=== PATIENT | male | born 2000 | race Caucasian/White ===

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

== ENCOUNTER 2021-02-20 13:31 | Emergency (ER) | payer SELFPAY ==
[2021-02-20 14:12] VITALS: BP 145/80; PULSE 107; RESP 18; TEMP 36.7; O2SAT 96; BMI 37.7
--- NOTE | 2021-02-20 14:52 | ED_ITS ---
HPI - Extremity Problem General: Chief complaint: Extremity Injury, Lower Stated complaint: R FOOT DICOLORATION AND SPASMS Time Seen by Provider: 02/20/21 14:46 History of Present Illness: HPI Narrative: Patient here because his right foot hurts bad patient was seen last night at clinic and had some debridement done on a puncture wound where he stepped on a nail yesterday was placed on antibiotics but patient is not taking antibiotics as of right now. And patient will take pain medication because his dad was an addict. Denies any other problems. MD Complaint: extremity pain Onset (ago): hour(s) Pain Consistency: constant Location: right and lower extremity Quality: aching Radiation: none Exacerbating factors: weight bearing Associated symptoms: Deny chest pain, fever(s) or rash Review of Systems Const: Denies: fever(s), chills or body aches Eyes: Denies: change in vision or blurry vision ENMT: Denies: throat pain or nasal congestion Card: Denies: chest pain or dyspnea on exertion Resp: Denies: dyspnea, productive cough or non-productive cough GI: Denies: abdominal pain, nausea or vomiting : Denies: difficulty urinating Musc: Reports: extremity pain (Sole right foot hurts where he stepped on a nail.) Skin/Breast: Denies: rash Neuro: Denies: headache(s) Psych: Denies: anxiety or depression Yomi/Lymph: Denies: easy bruising [facility] ED PFSH: Medical History (Updated 02/20/21 @ 14:51 by JAYASHREE Borrero) Obesity (BMI 30-39.9) Puncture wound of foot excluding toes with infection Physical Exam Const: COMMON NORMALS: no acute distress, average body habitus and patient oriented x3 HENMT: COMMON NORMALS: normocephalic HEAD & SCALP: normal to inspection and normocephalic FACE & SINUS: normal facial exam Eye: COMMON NORMALS: conjunctivae normal GENERAL EYE: appearance normal, both eyes and all related structures CONJUNCTIVA: Yes conjunctivae normal Neck/C-Spine: COMMON NORMALS: no JVD Chest: COMMONS NORMALS: normal inspection of the chest Resp: COMMON NORMALS: normal respiratory effort Cardio: COMMON NORMALS: no JVD RATE: tachycardic GI: COMMON NORMALS: Normal to inspection, nondistended, normoactive bowel sounds present Extremity: COMMON NORMALS: full ROM RIGHT LOWER EXTREMITY: Yes foot & digits (Puncture wound present sole right foot no redness swelling foot is not disc) Neuro: COMMON NORMALS: patient oriented x3 Course Vital Signs: Vital signs: Vital Signs Temperature 98.0 F 02/20/21 14:12 Pulse Rate 107 H 02/20/21 14:12 Respiratory Rate 18 02/20/21 14:12 Blood Pressure 145/80 02/20/21 14:12 Pulse Oximetry 96 02/20/21 14:12 MDM - Extremity (Nontraumatic) MDM Narrative: Medical decision making narrative: Foot did not show any swelling was tender to touch no discoloration no spasms noted. Patient was encouraged to take medication as directed soak foot follow-up with family doctor. Discharge Plan Discharge Patient Disposition: Home Clinical Impression: Puncture wound of foot excluding toes with infection Qualifiers: Encounter type: subsequent encounter Laterality: right Qualified Code(s): S91.331D - Puncture wound without foreign body, right foot, subsequent encounter Condition: Stable Prescriptions: No Action cephalexin 750 mg capsule 750 mg PO BID Qty: 14 RF: 0 Discharge Orders: Discharge ED (Routine); Ordered 02/20/21 Ordered By: Art Mancilla Discharge Diet: Usual diet Discharge Activity: Increase activity as tolerated Patient Instructions: Puncture Wound (ED) Activity Restrictions/Additional Instructions: Follow-up with medical provider as directed. Take medications as prescribed. Return to the ER or your medical provider if condition worsens. Please read and understand discharge instructions. If any questions ask please. Soak foot in Epson salts 3 times a day follow back up your family doctor as necessary. Started on antibiotics. Coding Level of Care Code ED Press Operator Assistant for Marco Antonio Fwton Exam Comprehensive
[2021-02-20] MEDS: tetanus-dipt-pertussis 0.5 mL SDV IM (14:56)
== END 2021-02-20 15:01 | disposition home or self-care (01) ==
PROVIDERS: Emergency Provider Nurse Practitioner Family
DX: S91.331A Puncture wound without foreign body, right foot, initial encounter (principal); L08.9 Local infection of the skin and subcutaneous tissue, unspecified; W45.0XXA Nail entering through skin, initial encounter; Z23 Encounter for immunization
CPT/HCPCS: 90471; 90715; 99282

== ENCOUNTER 2023-02-09 14:23 | Emergency (ER) | payer SELFPAY ==
[2023-02-09 14:38] VITALS: BP 133/77; PULSE 100; RESP 19; TEMP 36.8; O2SAT 100; BMI 38.2
--- NOTE | 2023-02-09 14:42 | ECG_ITS ---
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 Measurements Intervals [place] Rate: 88 P: 136 SC: 130 QRS: 129 QRSD: 87 T: 30 QT: 323 QTc: 393 Interpretive Statements ECTOPIC ATRIAL RHYTHM LEFT POSTERIOR FASCICULAR BLOCK [QRS AXIS > 109, INFERIOR Q] Compared to ECG 07/08/2016 10:19:01 Ectopic atrial rhythm now present Left posterior fascicular block now present Sinus bradycardia no longer present Electronically Signed On 02-10-2023 21:08:12 CDT by Fátima Mendoza M.D. [id number]
--- NOTE | 2023-02-09 16:01 | W.ED.GENADLT ---
HPI - General Adult General: Chief complaint: Chest Pain Stated complaint: states high hr/Urgent care sent Time Seen by Provider: 02/09/23 15:43 Source: patient Mode of arrival: ambulatory Limitations: no limitations History of Present Illness: Patient is a 22-year-old male who presents to ED today for evaluation of what he believes are panic attacks. He states over the course of a month or so he has had 3 episodes where he has felt very anxious, nauseous, starts to develop chest pain, and feels like his heart is racing. He states episodes and timing began after starting a new job at [employer] and states he is under an immense amount of stress. In between episodes he feels completely asymptomatic. There is no exertional component to his symptoms. Patient otherwise is healthy. He has no primary care provider. Denies drug or alcohol use. Denies excessive caffeine use or energy drink use. He states he had an episode earlier today that scared him thus prompting his ED visit. Upon arrival to the ED and during my initial examination patient tells me symptoms have fully resolved and he is completely asymptomatic. Onset (ago): month(s) Severity: moderate Pain Consistency: intermittent Relieving factors: none Exacerbating factors: other (stress) Associated symptoms: Reports chest pain (during episode; none currently), dyspnea (during episode; none currently), nausea (none currently) and palpitations; Deny headache(s), malaise, rash, syncope or vomiting Treatments prior to arrival: none Review of Systems Const: Denies: fever(s), chills, body aches, fatigue or malaise Card: Reports: chest pain (during episode; none currently) and palpitations; Denies: irregular heart rhythm, edema, swelling of feet/ankles, lightheadedness, syncope, pre-syncope, dyspnea on exertion, orthopnea, leg pain with exertion or acrocyanosis Resp: Reports: dyspnea (during episode; none currently); Denies: productive cough, non-productive cough, wheezing, pain on inspiration, hemoptysis or chest congestion GI: Reports: nausea (none currently); Denies: abdominal pain, vomiting or diarrhea : Denies: flank pain, dysuria or hematuria Musc: Denies: neck pain, back pain, extremity pain or joint pain Skin/Breast: Denies: rash Neuro: Reports: dizziness (during episode; none currently); Denies: headache(s), numbness in extremities, weakness in extremities, sensory changes, lack of coordination or difficulty walking PFSH ED PFSH: Medical History Obesity (BMI 30-39.9) Psychiatric care Puncture wound of foot excluding toes with infection Social History Smoking and tobacco status: current every day smoker e-cigarettes E-Cigarette Details: vaporizer device and with nicotine E-cig/vape details: Refill/3 weeks. Quit status (tobacco): has quit using tobacco Year quit tobacco: 2021 Second hand smoke exposure: No Smoking risk assessment/counseling performed?: No Alcohol intake: current Alcohol intake frequency: holidays/special occasions only Alcohol type: wine Desire information about alcohol rehabilitation?: No Counseling given: No Substance/Drug Use: never Desire information about substance/drug rehabilitation?: No Counseling given: No Physical Exam Const: COMMON NORMALS: no acute distress, average body habitus, patient oriented x3, no limitations, healthy appearing, alert and well nourished GENERAL APPEARANCE: cooperative and anxious ORIENTATION/CONSCIOUSNESS: Yes awake, Yes oriented to person, Yes oriented to place and Yes oriented to time Eye: GENERAL EYE: appearance normal, both eyes and all related structures Neck/C-Spine: COMMON NORMALS: full ROM, no lymphadenopathy, supple and no meningeal signs Chest: COMMONS NORMALS: normal inspection of the chest and normal palpation of entire chest wall Resp: COMMON NORMALS: normal respiratory effort and clear to auscultation bilaterally AUSCULTATION: clear to auscultation bilaterally Cardio: COMMON NORMALS: regular rate and regular rhythm RATE: regular rate RHYTHM: regular rhythm Extremity: COMMON NORMALS: normal to inspection GENERAL: Yes normal exam except as noted Neuro: SAMMY COMA SCALE: document GCS findings Sammy coma scale eye opening: Spontaneous Sammy coma scale verbal response: Orientated [place] coma scale motor response: Obey commands Sammy coma scale total score: 15 COMMON NORMALS: patient oriented x3, moves all extremities, no focal motor deficits, no sensory deficits noted and gait normal SENSORIUM/ORIENTATION: Yes alert, Yes oriented to person, Yes oriented to place and Yes oriented to time MENINGEAL SIGNS: Yes no meningeal signs Skin: COMMON NORMALS: no rashes or lesions noted GENERAL SKIN EXAM: no rashes or lesions noted Course Vital Signs: Vital signs: Vital Signs Temperature 98.2 F 02/09/23 14:38 Pulse Rate 100 02/09/23 14:38 Respiratory Rate 19 H 02/09/23 14:38 Blood Pressure 133/77 02/09/23 14:38 Pulse Oximetry 100 02/09/23 14:38 Oxygen Delivery Me thod Room Air 02/09/23 14:38 MDM - General Adult Medical Decision Making Upon arrival to the ED patient is asymptomatic. Vital signs are stable. He had EKG performed in triage. Additional work-up including CXR/imaging and blood work was offered and recommended the patient however he declined stating he is self-pay and worries about the cost of this visit. He feels his symptoms are related to anxiety and is kindly requesting we try some type of medication for this. We will get patient set up with a primary care provider/he has already received financial investigator paperwork and states he will complete this. Strict return to ED precautions given. Discharge Plan Discharge Patient Disposition: Home Clinical Impression: Anxiety Condition: Stable Prescriptions: New lorazepam 0.5 mg tablet 0.5 mg PO ONCE PRN (Reason: anxiety) Qty: 10 0RF Rx Instructions: Do not exceed more than one tab every 4-6 hours. No Action sertraline [Zoloft] 50 mg tablet 50 mg PO DAILY Qty: 30 2RF amoxicillin 875 mg tablet 875 mg PO BID 7 Days Qty: 14 0RF Discharge Orders: Discharge ED (Routine); Ordered 02/09/23 Ordered By: Yadi Fontana Coding Level of Care Code ED Elevator Runner for Marco Antonio Mendiola
--- NOTE | 2023-02-11 15:12 | DCPLANNER ---
manager hotel called patient due to no primary care physician - no answer at this time
== END 2023-02-09 16:17 | disposition home or self-care (01) ==
PROVIDERS: Emergency Provider Physician Assistant
DX: F41.9 Anxiety disorder, unspecified (principal); F17.290 Nicotine dependence, other tobacco product, uncomplicated
CPT/HCPCS: 93005; 99283

== ENCOUNTER 2023-04-16 07:46 | Emergency (ER) | payer SELFPAY ==
[2023-04-16 08:08] VITALS: BP 140/82; PULSE 94; RESP 18; TEMP 36.9; O2SAT 97; BMI 38.7
--- NOTE | 2023-04-16 08:19 | CTR_ITS ---
PROCEDURE INFORMATION: Exam: CT Abdomen And Pelvis With Contrast Exam date and time: 04/16/2023 9:11 AM Age: 23 years old Clinical indication: Abdominal pain; Generalized; Additional info: Right-sided abdominal pain, nausea/vomiting and diarrhea TECHNIQUE: Imaging protocol: Computed tomography of the abdomen and pelvis with contrast. Radiation optimization: All CT scans at this facility use at least one of these dose optimization techniques: automated exposure control; mA and/or kV adjustment per patient size (includes targeted exams where dose is matched to clinical indication); or iterative reconstruction. Contrast material: OMNI 350; Contrast volume: 100 ml; Contrast route: INTRAVENOUS (IV); REPORTING DATA: Count of CT and Cardiac NM exams in prior 12 months: This patient has received 0 known CTs and 0 known cardiac nuclear medicine studies in the 12 months prior to the current study. COMPARISON: CR XR sacrum coccyx min 2V [id number] 10/25/2017 12:40 PM RADIATION DOSE METRICS: Total DLP (mGy-cm): 1251.83 FINDINGS: Liver: Normal. No mass. Gallbladder and bile ducts: Normal. No calcified stones. No ductal dilation. Pancreas: Normal. No ductal dilation. Spleen: Normal. No splenomegaly. Adrenal glands: Normal. No mass. Kidneys and ureters: Normal. No hydronephrosis. Stomach and bowel: Unremarkable. No obstruction. No mucosal thickening. Appendix: No evidence of appendicitis. Intraperitoneal space: Unremarkable. No free air. No significant fluid collection. Vasculature: Unremarkable. No abdominal aortic aneurysm. Lymph nodes: Unremarkable. No enlarged lymph nodes. Urinary bladder: Unremarkable as visualized. Reproductive: Unremarkable as visualized. Bones/joints: Unremarkable. No acute fracture. Soft tissues: Unremarkable. CT/CT abdomen pelvis w con* [id number] IMPRESSION: No acute findings.
--- NOTE | 2023-04-16 08:20 | ED_ITS ---
HPI - Abdominal Pain General: Chief Complaint: Abdominal Pain Stated Complaint: stomach pain/small amount blood in stool Time Seen by Provider: 04/16/23 07:57 History of Present Illness: Patient is a 23-year-old male comes to the ED with abdominal pain. Symptoms started approximately 2 to 3 days ago. The abdominal pain is in the right side of his abdomen, but most of pain is in the right upper quadrant of the abdomen. Pain worsens a little after he eats. He describes it as a constant aching type pain with episodes of a sharp stabbing pain. He rates the pain currently a 7 o ut of 10. He endorses having nausea and had multiple episodes of emesis within the past couple days. He has had 2 episodes of diarrhea, one this morning and one yesterday. The episode of diarrhea today had a little bit of red blood in it. Patient states he never had abdominal pain in this part of his abdomen before. Denies any past abdominal surgeries. Endorses dysuria. Denies any, chills, hematuria. Associated Symptoms: Reports diarrhea, dysuria, hematochezia, nausea and vomiting; Denies chills, constipation, fever(s) and hematuria Review of Systems Const: Denies: fever(s), chills or fatigue Eyes: Denies: change in vision or eye discomfort ENMT: Denies: throat pain, odynophagia, nasal discharge or nasal congestion Card: Denies: chest pain, palpitations, edema, swelling of feet/ankles, dyspnea on exertion or orthopnea Resp: Denies: dyspnea, productive cough or non-productive cough GI: Reports: abdominal pain, nausea, vomiting, diarrhea and hematochezia; Denies: constipation : Reports: dysuria; Denies: flank pain, difficulty urinating or hematuria Musc: Denies: neck pain, back pain or extremity swelling Skin/Breast: Denies: rash or new lesions Neuro: Denies: headache(s), numbness in extremities or weakness in extremities PFSH ED PFSH: Medical History Obesity (BMI 30-39.9) Psychiatric care Puncture wound of foot excluding toes with infection Social History Smoking and tobacco status: current every day smoker e-cigarettes E-Cigarette Details: vaporizer device and with nicotine E-cig/vape details: Refill/3 weeks. Quit status (tobacco): has quit using tobacco Year quit tobacco: 2021 Second hand smoke exposure: No Smoking risk assessment/counseling performed?: No Alcohol intake: current Alcohol intake frequency: holidays/special occasions only Alcohol type: wine Desire information about alcohol rehabilitation?: No Counseling given: No Substance/Drug Use: never Desire information about substance/drug rehabilitation?: No Counseling given: No Physical Exam Const: COMMON NORMALS: patient oriented x3 and alert HENMT: COMMON NORMALS: normocephalic HEAD & SCALP: normocephalic MOUTH: Normal oral and palatal mucosa present THROAT: posterior oropharynx normal and uvula midline Neck/C-Spine: COMMON NORMALS: supple GENERAL: Yes normal visual inspection Resp: COMMON NORMALS: normal respiratory effort, No retractions, No use of accessory muscles and clear to auscultation bilaterally AUSCULTATION: clear to auscultation bilaterally Cardio: COMMON NORMALS: regular rate, regular rhythm, S1 normal heart sound present, S2 normal heart sound present, No gallops present (Cardio), No clicks present (Cardio), No murmurs present (Cardio) and Peripheral pulses 2+ throughout RATE: regular rate RHYTHM: regular rhythm HEART SOUNDS: S1 normal heart sound present and S2 normal heart sound present PERIPHERAL PULSES: Peripheral pulses 2+ throughout GI: COMMON NORMALS: Normal to inspection, nondistended, normoactive bowel sounds present, Soft to palpation and no masses PALPATION: Yes Soft to palpation and Yes Tenderness to palpation present (GI) (RUQ more tender then RLQ) Details: RLQ and RUQ : COMMON NORMALS: Yes no CVA tenderness BLADDER/KIDNEY EXAM: Yes no CVA tenderness Back/Pelvis: COMMON NORMALS: no CVA tenderness Extremity: COMMON NORMALS: normal to inspection Neuro: COMMON NORMALS: patient oriented x3 SENSORIUM/ORIENTATION: Yes alert GAIT: Yes Normal gait present Skin: GENERAL SKIN EXAM: dry skin Course Vital Signs: Vital signs: Vital Signs Temperature 98.4 F 04/16/23 08:08 Pulse Rate 63 04/16/23 12:05 Respiratory Rate 18 04/16/23 12:05 Blood Pressure 127/73 04/16/23 12:05 Pulse Oximetry 98 04/16/23 12:05 Oxygen Delivery Me thod Room Air 04/16/23 12:02 MDM - Abdominal Pain Medical Decision Making Patient is a 23-year-old male comes to the ED with abdominal pain. Symptoms started approximately 2 to 3 days ago. The abdominal pain is in the right side of his abdomen, but most of pain is in the right upper quadrant of the abdomen. Pain worsens a little after he eats. He describes it as a constant aching type pain with episodes of a sharp stabbing pain. He rates the pain currently a 7 out of 10. He endorses having nausea and had multiple episodes of emesis within the past couple days. He has had 2 episodes of diarrhea, one this morning and one yesterday. The episode of diarrhea today had a little bit of red blood in it. Patient states he never had abdominal pain in this part of his abdomen before. Denies any past abdominal surgeries. Endorses dysuria. Denies any, chills, hematuria. Vitals are stable. Patient appears nontoxic in no acute distress or pain. Exam of patient shows right upper quadrant right lower quadrant abdominal tenderness. Rest of exam is benign. CBC, CMP, lipase and UA are all unremarkable. CT of abdomen pelvis shows no acute findings and ultrasound of gallbladder shows no acute findings. Patient's symptoms were controlled with IV fluids and nausea meds. He was able to tolerate p.o. fluids here in the ED. Patient was diagnosed with biliary colic and was stable for discharge home. I offered a referral to patient for PCP and general surgeon and he did not want one at this time. I sent him home with a prescription for Zofran and told him to follow-up with a PCP within the next 10 days. Patient understood agree with plan. Lab Data I reviewed the patient's lab results. 04/16/23 08:45 04/16/23 08:45 Labs/Radiology: Radiology Impressions Abdomen/Pelvis CT 04/16/23 08:19 IMPRESSION: No acute findings. Gallbladder Ultrasound 04/16/23 09:52 IMPRESSION: Negative abdominal sonogram Laboratory Results WBC 4.8 10^3/uL (4.0-10.0) 04/16/23 08:45 RBC 5.75 10^6/uL (4.1-5.3) H 04/16/23 08:45 Hgb 15.3 g/dL (11.7-16.6) 04/16/23 08:45 Hct 47.9 % (42.0-52.0) 04/16/23 08:45 MCV 83.3 fl (80-94) 04/16/23 08:45 MCH 26.6 pg (28.0-34.0) L 04/16/23 08:45 MCHC 31.9 g/dL (30.0-36.0) 04/16/23 08:45 RDW 14.2 % (12.1-15.1) 04/16/23 08:45 Plt Count 200 10^3/cmm (130-400) 04/16/23 08:45 MPV 11.9 fL (7.4-10.4) H 04/16/23 08:45 Neut % (Auto) 47.7 % 04/16/23 08:45 Lymph % (Auto) 41.6 % 04/16/23 08:45 [place] % (Auto) 8.6 % 04/16/23 08:45 Eos % (Auto) 1.3 % 04/16/23 08:45 Baso % (Auto) 0.6 % 04/16/23 08:45 Neut # (Auto) 2.28 10^3/uL (1.8-7.7) 04/16/23 08:45 Lymph # (Auto) 2.0 10^3/uL (0.8-4.8) 04/16/23 08:45 [place] # (Auto) 0.4 10^3/uL (0.2-0.9) 04/16/23 08:45 Eos # (Auto) 0.1 10^3/uL (0.0-0.8) 04/16/23 08:45 Baso # (Auto) 0.0 10^3/uL (0.0-0.1) 04/16/23 08:45 Nucleated RBC % (auto) 0 % 04/16/23 08:45 Nucleated RBCs # 0.0 /100WBC 04/16/23 08:45 Sodium 139 mmol/L (136-145) 04/16/23 08:45 Potassium 4.3 mmol/L (3.5-5.1) 04/16/23 08:45 Chloride 103 mmol/L (98-107) 04/16/23 08:45 Carbon Dioxide 26 mmol/L (22-29) 04/16/23 08:45 Anion Gap 14.3 (5-19) 04/16/23 08:45 BUN 17 mg/dL (6-20) 04/16/23 08:45 Creatinine 0.8 mg/dL (0.7-1.2) 04/16/23 08:45 GFR Calculation 120.9 mL/min (90-130) 04/16/23 08:45 Glucose 98 mg/dL (65-115) 04/16/23 08:45 Calculated Osmolality 290 mOsm/kg (285-295) 04/16/23 08:45 Calcium 9.6 mg/dL (8.5-10.5) 04/16/23 08:45 Total Bilirubin 0.8 mg/dL (0.15-1.2) 04/16/23 08:45 AST 22 U/L (0-40) 04/16/23 08:45 ALT 43 U/L (0-41) H 04/16/23 08:45 Alkaline Phosphatase 124 U/L (40-130) 04/16/23 08:45 Total Protein 7.9 g/dL (6.6-8.7) 04/16/23 08:45 Albumin 4.7 g/dL (3.5-5.2) 04/16/23 08:45 Globulin 3.2 g/dL (1.3-4.6) 04/16/23 08:45 Lipase 12 U/L (13-60) L 04/16/23 08:45 Urine Color Straw (Yellow) 04/16/23 09:10 Urine Appearance Sl hazy (CLEAR) A 04/16/23 09:10 Urine pH 9 (5-7) H 04/16/23 09:10 Ur Specific [place] 1.015 (1.005-1.030) 04/16/23 09:10 Urine Protein Neg (Negative) 04/16/23 09:10 Urine Glucose (UA) Norm (Normal) 04/16/23 09:10 Urine Ketones Negative (Negative) 04/16/23 09:10 Urine Blood Neg (Negative) 04/16/23 09:10 Urine Nitrate Negative (Negative) 04/16/23 09:10 Urine Bilirubin Neg (Negative) 04/16/23 09:10 Prot Sulfosalicylic Acd Negative (Negative) 04/16/23 09:10 Urine Urobilinogen Norm mg/dL (Negative) 04/16/23 09:10 Ur Leukocyte Esterase Negative (Negative) 04/16/23 09:10 Urine RBC None /hpf (0-2) 04/16/23 09:10 Urine WBC Rare /hpf (0-5) 04/16/23 09:10 Ur Squamous Epith Cells None /hpf (0-5) 04/16/23 09:10 Amorphous Sediment 1+ /hpf 04/16/23 09:10 Urine Bacteria Trace /hpf (NONE) 04/16/23 09:10 Discharge Plan Discharge Patient Disposition: Home Clinical Impression: Biliary colic symptom Condition: Stable Prescriptions: New ondansetron 4 mg tablet,disintegrating 4 mg PO Q8H PRN (Reason: nausea and vomiting) Qty: 20 0RF Discharge Orders: Discharge ED (Routine); Ordered 04/16/23 Ordered By: Karlos Levine Discharge Diet: Advance as tolerated and Clear Liquid Discharge Activity: Increase activity as tolerated Patient Instructions: Biliary Colic (ED) Activity Restrictions/Additional Instructions: Follow-up with medical provider as directed in the next 7 to 10 days for reevaluation. Clear liquid diet for the next 24 hours and slowly advance diet as tolerated. Sure you drink plenty of fluids and stay hydrated. Take medications as prescribed. Take [id number] Tylenol or ibuprofen for pain. Try to avoid foods that are fatty and greasy or any other foods that she knows that can cause worsening symptoms. Return to the ER or your medical provider if condition worsens. Please read and understand discharge instructions. Thank you for choosing [facility] for your healthcare needs today. Please realize this is an emergency room and that we are providing you with a medical screening exam and this may not be complete and all inclusive of all the testing and or work up that you may need to determine your ailment or severity of your illness. It is very important that you follow up as instructed or that you return to the Emergency Department should you have concerns or if your condition changes or worsens in any way. Coding Level of Care Code ED Waiter/Waitress Captain for Marco Antonio Mendiola
[2023-04-16] MEDS: iohexol 350 mg/mL 500 mL Btl (per mL) IV (08:35)
[2023-04-16] MEDS: sodium chloride 0.9% 1,000 ML 999 ML IV (08:44)
[2023-04-16] MEDS: ondansetron 2 mg/ML SDV 2 mL 4 MG IVP (08:47)
[2023-04-16 08:56] LABS: Basophils % 0.6 %; Eosinophils # 0.1 10^3/uL (0.0-0.8); Eosinophils % 1.3 %; Hematocrit 47.9 % (42.0-52.0); Hemoglobin 15.3 g/dL (11.7-16.6); Lymphocytes % 41.6 %; Mean Corpuscular HGB Conc 31.9 g/dL (30.0-36.0); Mean Corpuscular Hemoglobin 26.6 pg (28.0-34.0); Mean Corpuscular Volume 83.3 fl (80-94); Mean Platelet Volume 11.9 fL (7.4-10.4); Monocytes # 0.4 10^3/uL (0.2-0.9); Monocytes % 8.6 %; Neutrophils # 2.28 10^3/uL (1.8-7.7); Neutrophils % 47.7 %; Nucleated Red Blood Cells % 0 %; Platelet Count 200 10^3/cmm (130-400); Red Blood Count 5.75 10^6/uL (4.1-5.3); Red Cell Distribution Width 14.2 % (12.1-15.1); White Blood Count 4.8 10^3/uL (4.0-10.0)
[2023-04-16 09:36] LABS: Alanine Aminotransferase 43 U/L (0-41); Albumin Level 4.7 g/dL (3.5-5.2); Alkaline Phosphatase 124 U/L (40-130); Anion Gap 14.3 (5-19); Aspartate Amino Transferase 22 U/L (0-40); Blood Urea Nitrogen 17 mg/dL (6-20); Calcium 9.6 mg/dL (8.5-10.5); Carbon Dioxide 26 mmol/L (22-29); Chloride 103 mmol/L (98-107); Globulin 3.2 g/dL (1.3-4.6); Glomerular Filtration Rate 120.9 mL/min (90-130); Glucose 98 mg/dL (65-115); Lipase 12 U/L (13-60); Osmolality Calculated 290 mOsm/kg (285-295); Potassium 4.3 mmol/L (3.5-5.1); Sodium 139 mmol/L (136-145); Total Bilirubin 0.8 mg/dL (0.15-1.2); Total Protein 7.9 g/dL (6.6-8.7)
[2023-04-16 09:41] LABS: Add Urine Microscopic? YES; Amorphous Sediment Urine 1+ /hpf; Bacteria Urine TRACE /hpf; Bilirubin Urine Neg (Negative); Blood Urine Neg (Negative); Glucose Urine UA Norm (Normal); Ketones Urine Negative (Negative); Leukocyte Esterase Urine Negative (Negative); Nitrate Urine Negative (Negative); Protein Urine Neg (Negative); Specific Gravity, Urine 1.015 (1.005-1.030); Sulfosalicylic Acid Urine Negative (Negative); Urine Appearance SL Hazy (CLEAR); Urine Color Straw (Yellow); Urobilinogen Urine Norm (Negative); WBC Urine RARE /hpf (0-5); pH Urine 9 (5-7)
[2023-04-16 09:42] LABS: Add Urine Culture? No
--- NOTE | 2023-04-16 09:52 | USR_ITS ---
PROCEDURE INFORMATION: Exam: US Abdomen, Limited; Right Upper Quadrant Exam date and time: 04/16/2023 10:39 AM Age: 23 years old Clinical indication: Abdominal pain; Other: Ruq; Additional info: Ruq pain, n/v TECHNIQUE: Imaging protocol: Real time ultrasound of the abdomen with image documentation. Limited exam focused on the right upper quadrant. COMPARISON: CT abdomen pelvis w con* [id number] 04/16/2023 9:11 AM FINDINGS: Liver: Normal. No masses. Mild hepatomegaly liver span is 17.5 cm Gallbladder: Normal. No gallstones. There is no gallbladder wall thickening. Biliary ducts: Normal. No stones. No dilation. CBD 2.5 mm Pancreas: Visualized pancreas is unremarkable. Right kidney: Normal. No mass. No hydronephrosis. 13.3 cm x 4.7 cm x 6.3 cm US/US gall bladder [id number] IMPRESSION: Negative abdominal sonogram
[2023-04-16 12:02] VITALS: BP 127/73; PULSE 63; RESP 18; O2SAT 98
[2023-04-16 12:05] VITALS: BP 127/73; PULSE 63; RESP 18; O2SAT 98
== END 2023-04-16 12:03 | disposition home or self-care (01) ==
PROVIDERS: Emergency Provider Physician Assistant
DX: K80.50 Calculus of bile duct without cholangitis or cholecystitis without obstruction (principal); F17.290 Nicotine dependence, other tobacco product, uncomplicated
CPT/HCPCS: 74177; 76705; 80053; 81001; 83690; 85025; 96361; 96374; 99285; J2405; J7030; Q9967

== ENCOUNTER 2023-05-17 09:21 | Emergency (ER) | payer SELFPAY ==
[2023-05-17 09:22] VITALS: BP 115/82; PULSE 83; TEMP 36.7; O2SAT 100; BMI 39.6
--- NOTE | 2023-05-17 09:33 | ECG_ITS ---
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 Measurements Intervals [place] Rate: 78 P: 29 NE: 150 QRS: 58 QRSD: 90 T: 40 QT: 357 QTc: 408 Interpretive Statements SINUS RHYTHM Compared to ECG 02/09/2023 14:46:10 Ectopic atrial rhythm no longer present Left posterior fascicular block no longer present Electronically Signed On 05-17-2023 17:44:03 CDT by Tico Silva M.D. [id number]
--- NOTE | 2023-05-17 09:36 | XR_ITS ---
WS: [id number] XR chest 1V portable [id number] REASON FOR EXAM: left-sided chest pain FINDINGS: Heart and mediastinum are within normal limits. Calcified granulomatous disease is present in both hemithoraces. No focal or diffuse pulmonary parenchymal or pleural abnormality is identified. The bony thorax is intact without significant focal bone abnormality. IMPRESSION: No acute chest abnormality.
--- NOTE | 2023-05-17 09:39 | W.ED.CHESTPA ---
HPI - Chest Pain General: Chief Complaint: Chest Pain Stated Complaint: CHEST PAIN/SYNCOPE Time Seen by Provider: 05/17/23 09:23 Source: patient Mode of arrival: EMS Limitations: no limitations History of Present Illness: Pt is a 23 y/o male with no significant past medical hx who presents to the ED via EMS with complaints of chest and syncope. 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 He remembers feeling some chest pain and was able to lower himself to the ground. States the next thing I knew I was waking up and was told by his coworkers that he lost consciousness briefly. He denies ever have symptoms like this prior, but does say that he has been seen in the ED in the past for issues with chest pain/anxiety. He is not on any medications. En route, he received NTG and ASA, which he says improved his pain that now is a 4/10 and has persisted in the same area. Patient no longer complains of shortness of breath but says that he still feels dizzy and weak. He has no other personal cardiac history, and denies any significant family cardiac history. He states that he does not have a primary care physician and will not take meds, because of my dad . He denies any nausea, vomiting, abdominal pain, back pain, diaphoresis, palpitations, or any other symptoms. MD complaint: chest pain Onset (ago): minute(s) (30) Timing of current episode: constant Prior episodes: No Onset: during rest Pain location: left chest Pain radiation: none Severity: moderate Pain scale (0-10): 4 Quality: tightness Relieving factors: nitroglycerin Exacerbating factors: nothing Associated symptoms: Reports dyspnea (resolved at time of my examination) and syncope; Deny abdominal pain, diaphoresis, fever(s), nausea, palpitations or vomiting Treatment prior to arrival: aspirin and nitroglycerin Risk Factors: Coronary artery disease risk factors: none Thoracic aortic dissection risk factors: none Review of Systems Const: Denies: fever(s), chills or diaphoresis Eyes: Denies: change in vision or blurry vision Card: Reports: chest pain and syncope; Denies: palpitations, irregular heart rhythm or edema Resp: Reports: dyspnea (resolved at time of my examination); Denies: productive cough or pain on inspiration GI: Denies: abdominal pain, nausea, vomiting, heartburn or diarrhea : Denies: difficulty urinating or dysuria Musc: Denies: neck pain, back pain or joint pain Skin/Breast: Denies: rash Neuro: Reports: weakness in extremities and dizziness; Denies: headache(s), numbness in extremities, sensory changes, lack of coordination or confusion Psych: Reports: anxiety PFSH ED PFSH: Medical History Obesity (BMI 30-39.9) Psychiatric care Puncture wound of foot excluding toes with infection Social History Smoking and tobacco status: current every day smoker e-cigarettes E-Cigarette Details: vaporizer device and with nicotine E-cig/vape details: Refill/3 weeks. Quit status (tobacco): has quit using tobacco Year quit tobacco: 2021 Second hand smoke exposure: No Smoking risk assessment/counseling performed?: No Alcohol intake: current Alcohol intake frequency: holidays/special occasions only Alcohol type: wine Desire information about alcohol rehabilitation?: No Counseling given: No Substance/Drug Use: never Desire information about substance/drug rehabilitation?: No Counseling given: No Physical Exam Const: COMMON NORMALS: no acute distress, patient oriented x3, no limitations, alert and well nourished GENERAL APPEARANCE: cooperative and anxious NUTRITIONAL APPEARANCE: obese ORIENTATION/CONSCIOUSNESS: Yes awake, Yes oriented to person, Yes oriented to place and Yes oriented to time HENMT: COMMON NORMALS: normocephalic and atraumatic HEAD & SCALP: normal to inspection, normocephalic and atraumatic Eye: COMMON NORMALS: Equal, round and reactive pupils present, EOMs intact bilaterally and conjunctivae normal CONJUNCTIVA: Yes conjunctivae normal PUPIL: Yes Equal, round and reactive pupils present Neck/C-Spine: COMMON NORMALS: full ROM, no lymphadenopathy, supple, no meningeal signs and no JVD Chest: COMMONS NORMALS: normal inspection of the chest and normal palpation of entire chest wall Resp: COMMON NORMALS: normal respiratory effort and clear to auscultation bilaterally AUSCULTATION: clear to auscultation bilaterally Cardio: COMMON NORMALS: no JVD, regular rate, regular rhythm, S1 normal heart sound present, No gallops present (Cardio), No clicks present (Cardio), No murmurs present (Cardio), No rub (Cardio) and Peripheral pulses 2+ throughout JUGULAR VENOUS DISTENTION: no JVD RATE: regular rate RHYTHM: regular rhythm HEART SOUNDS: S1 normal heart sound present PERIPHERAL PULSES: Peripheral pulses 2+ throughout GI: COMMON NORMALS: Normal to inspection, nondistended, normoactive bowel sounds present, Soft to palpation, non-tender, No hepatosplenomegaly present and no masses PALPATION: Yes Soft to palpation and Yes No hepatosplenomegaly present : COMMON NORMALS: Yes no CVA tenderness BLADDER/KIDNEY EXAM: Yes no CVA tenderness Back/Pelvis: COMMON NORMALS: no CVA tenderness and thoracic and lumbar spine normal to inspection Extremity: COMMON NORMALS: normal to inspection, capillary refill normal, no joint enlargement, no clubbing, cyanosis or edema, no calf tenderness and no pedal edema GENERAL: Yes normal exam except as noted Neuro: SAMMY COMA SCALE: document GCS findings [place] coma scale eye opening: Spontaneous Sammy coma scale verbal response: Orientated Sammy coma scale motor response: Obey commands Sammy coma scale total score: 15 COMMON NORMALS: patient oriented x3 SENSORIUM/ORIENTATION: Yes alert, Yes oriented to person, Yes oriented to place and Yes oriented to time MENINGEAL SIGNS: Yes no meningeal signs Skin: COMMON NORMALS: no rashes or lesions noted GENERAL SKIN EXAM: no rashes or lesions noted Course Vital Signs: Vital signs: Vital Signs Temperature 98.0 F 05/17/23 09:22 Pulse Rate 73 05/17/23 12:22 Respiratory Rate 19 H 05/17/23 10:51 Blood Pressure 132/76 05/17/23 12:22 Pulse Oximetry 99 05/17/23 12:22 Oxygen Delivery Me thod Room Air 05/17/23 10:51 MDM - Chest Pain Medical Decision Making Patient appears in no acute distress. His vital signs are stable. Blood work including baseline and repeat troponins are unremarkable. His baseline repeat EKG showed no ischemic changes. CXR is normal. At this time I do not have any concern for emergent etiology for the cause of his chest discomfort and syncope. Case management referral will be placed to get him set up with a follow-up primary care appointment. Return to ED precautions given. Discussed possibility of them ordering a Holter monitor if he has any further syncopal episodes. Lab Data 05/17/23 09:30 05/17/23 09:30 Laboratory Results WBC 5.8 10^3/uL (4.0-10.0) 05/17/23 09:30 RBC 5.56 10^6/uL (4.1-5.3) H 05/17/23 09:30 Hgb 15.7 g/dL (11.7-16.6) 05/17/23 09:30 Hct 47.2 % (42.0-52.0) 05/17/23 09:30 MCV 84.9 fl (80-94) 05/17/23 09:30 MCH 28.2 pg (28.0-34.0) 05/17/23 09:30 MCHC 33.3 g/dL (30.0-36.0) 05/17/23 09:30 RDW 14.2 % (12.1-15.1) 05/17/23 09:30 Plt Count 220 10^3/cmm (130-400) 05/17/23 09:30 MPV 12.7 fL (7.4-10.4) H 05/17/23 09:30 Neut % (Auto) 41.0 % 05/17/23 09:30 Lymph % (Auto) 48.6 % 05/17/23 09:30 [place] % (Auto) 8.3 % 05/17/23 09:30 Eos % (Auto) 1.2 % 05/17/23 09:30 Baso % (Auto) 0.7 % 05/17/23 09:30 Neut # (Auto) 2.37 10^3/uL (1.8-7.7) 05/17/23 09:30 Lymph # (Auto) 2.8 10^3/uL (0.8-4.8) 05/17/23 09:30 [place] # (Auto) 0.5 10^3/uL (0.2-0.9) 05/17/23 09:30 Eos # (Auto) 0.1 10^3/uL (0.0-0.8) 05/17/23 09:30 Baso # (Auto) 0.0 10^3/uL (0.0-0.1) 05/17/23 09:30 Nucleated RBC % (auto) 0 % 05/17/23 09:30 Nucleated RBCs # 0.0 /100WBC 05/17/23 09:30 Sodium 139 mmol/L (136-145) 05/17/23 09:30 Potassium 3.9 mmol/L (3.5-5.1) 05/17/23 09:30 Chloride 102 mmol/L (98-107) 05/17/23 09:30 Carbon Dioxide 20 mmol/L (22-29) L 05/17/23 09:30 Anion Gap 20.9 (5-19) H 05/17/23 09:30 BUN 19 mg/dL (6-20) 05/17/23 09:30 Creatinine 0.7 mg/dL (0.7-1.2) 05/17/23 09:30 GFR Calculation 141.0 mL/min (90-130) H 05/17/23 09:30 Glucose 105 mg/dL (65-115) 05/17/23 09:30 Calculated Osmolality 291 mOsm/kg (285-295) 05/17/23 09:30 Calcium 9.6 mg/dL (8.5-10.5) 05/17/23 09:30 Total Bilirubin 0.6 mg/dL (0.15-1.2) 05/17/23 09:30 AST 27 U/L (0-40) 05/17/23 09:30 ALT 35 U/L (0-41) 05/17/23 09:30 Alkaline Phosphatase 119 U/L (40-130) 05/17/23 09:30 Troponin T Baseline 8 ng/L (0-15) 05/17/23 09:30 Troponin T 120 Minute 8.80 ng/L (0-15) 05/17/23 11:18 Delta Troponin T 0.80 ABS# (0-10) 05/17/23 11:18 Total Protein 7.9 g/dL (6.6-8.7) 05/17/23 09:30 Albumin 4.6 g/dL (3.5-5.2) 05/17/23 09:30 Globulin 3.3 g/dL (1.3-4.6) 05/17/23 09:30 EKG Data EKG 1: I personally reviewed and interpreted this EKG as follows: EKG interpretation date: 05/17/23 EKG interpretation time: 09:34 Prior EKG tracings: available for review Interpretation: 0934: NSR. Rate 78. Normal axis. Normal intervals. No acute ST segment changes. Previous tracing reviewed from FebruaryFebruary 09, 2023. No significant change from previous. Discharge Plan Discharge Patient Disposition: Home Clinical Impression: Non-cardiac chest pain Condition: Stable Prescriptions: No Action Vitamin C 500 mg Tablet 500 mg PO DAILY PRN (Reason: unknown) Claritin 10 mg Tablet 10 mg PO QAM Prilosec OTC 20 mg Tablet,Delayed Release (Dr/Ec) 20 mg PO QAM Vitamin D3 25 mcg (1,000 unit) Tablet 1,000 unit PO DAILY PRN (Reason: unknown) Discharge Orders: Discharge ED (Routine); Ordered 05/17/23 Ordered By: Yadi Fontana Coding Level of Care Code ED Registration Representative for Marco Antonio Mendiola
[2023-05-17 09:46] LABS: Basophils % 0.7 %; Eosinophils # 0.1 10^3/uL (0.0-0.8); Eosinophils % 1.2 %; Hematocrit 47.2 % (42.0-52.0); Hemoglobin 15.7 g/dL (11.7-16.6); Lymphocytes # 2.8 10^3/uL (0.8-4.8); Lymphocytes % 48.6 %; Mean Corpuscular HGB Conc 33.3 g/dL (30.0-36.0); Mean Corpuscular Hemoglobin 28.2 pg (28.0-34.0); Mean Corpuscular Volume 84.9 fl (80-94); Mean Platelet Volume 12.7 fL (7.4-10.4); Monocytes # 0.5 10^3/uL (0.2-0.9); Monocytes % 8.3 %; Neutrophils # 2.37 10^3/uL (1.8-7.7); Nucleated Red Blood Cells % 0 %; Platelet Count 220 10^3/cmm (130-400); Red Blood Count 5.56 10^6/uL (4.1-5.3); Red Cell Distribution Width 14.2 % (12.1-15.1); White Blood Count 5.8 10^3/uL (4.0-10.0)
[2023-05-17] MEDS: LORazepam 2 mg/mL INJ 1 mL 1 MG IVP (09:48)
[2023-05-17 10:21] LABS: Troponin(5th) Baseline 8 ng/L (0-15)
[2023-05-17 10:23] LABS: Albumin Level 4.6 g/dL (3.5-5.2); Alkaline Phosphatase 119 U/L (40-130); Blood Urea Nitrogen 19 mg/dL (6-20); Calcium 9.6 mg/dL (8.5-10.5); Carbon Dioxide 20 mmol/L (22-29); Chloride 102 mmol/L (98-107); Globulin 3.3 g/dL (1.3-4.6); Glucose 105 mg/dL (65-115); Osmolality Calculated 291 mOsm/kg (285-295); Sodium 139 mmol/L (136-145); Total Bilirubin 0.6 mg/dL (0.15-1.2); Total Protein 7.9 g/dL (6.6-8.7)
[2023-05-17 10:25] LABS: Alanine Aminotransferase 35 U/L (0-41); Anion Gap 20.9 (5-19); Aspartate Amino Transferase 27 U/L (0-40); Potassium 3.9 mmol/L (3.5-5.1)
[2023-05-17 10:51] VITALS: BP 132/76; PULSE 73; RESP 19; O2SAT 99
--- NOTE | 2023-05-17 11:43 | ECG_ITS ---
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 Measurements Intervals [place] Rate: 68 P: 23 RI: 156 QRS: 64 QRSD: 89 T: 38 QT: 380 QTc: 405 Interpretive Statements SINUS RHYTHM Compared to ECG 05/17/2023 09:33:20 No significant changes Electronically Signed On 05-17-2023 17:45:23 CDT by Tico Silva M.D. [id number]
[2023-05-17 12:22] VITALS: BP 132/76; PULSE 73; O2SAT 99
--- NOTE | 2023-05-17 13:40 | DCPLANNER ---
utilities manager had message to speak with patient about getting established with a primary care physician. Patient stated that he does not have insurance at this time and does not want a physician. Patient stated that when he gets insurance, that he will get a provider.
== END 2023-05-17 12:22 | disposition home or self-care (01) ==
PROVIDERS: Emergency Provider Physician Assistant
DX: R07.89 Other chest pain (principal); F17.290 Nicotine dependence, other tobacco product, uncomplicated
CPT/HCPCS: 36415; 71045; 80053; 84484; 85025; 93005; 96374; 99285; J2060

== ENCOUNTER 2023-08-25 09:29 | Emergency (ER) | payer SELFPAY ==
--- NOTE | 2023-08-25 09:32 | XR_ITS ---
WS: [id number] Exam: XR chest 1V portable [id number] Date/Time of Exam: 08/25/2023 9:32 AM Reason For Exam: dyspnea/cough Comparison 05/17/2023. Findings: The lungs are clear and fully expanded. Costophrenic angles are sharp. No infiltrates. Bronchovascula r relief appears normal. Cardiac silhouette is unremarkable. Bony elements are intact. IMPRESSION: Unremarkable chest radiograph.
[2023-08-25 09:40] VITALS: BP 125/76; PULSE 76; RESP 16; TEMP 36.4; O2SAT 99; BMI 40.8
[2023-08-25 10:14] LABS: Basophils % 0.4 %; Eosinophils % 0.4 %; Hematocrit 46.1 % (37-53); Lymphocytes # 1.5 10^3/uL (0.8-4.8); Lymphocytes % 27.6 %; Mean Corpuscular Hemoglobin 27.2 pg (27-33); Mean Corpuscular Volume 82.6 fl (82-101); Mean Platelet Volume 11.7 fL (7.4-10.4); Monocytes # 0.4 10^3/uL (0.2-0.9); Monocytes % 7.4 %; Neutrophils # 3.37 10^3/uL (1.8-7.7); Nucleated Red Blood Cells % 0 %; Platelet Count 200 10^3/cmm (157-399); Red Blood Count 5.58 10^6/uL (3.85-5.65); Red Cell Distribution Width 13.1 % (12.1-15.1); White Blood Count 5.26 10^3/uL (3.29-11.43)
--- NOTE | 2023-08-25 10:21 | W.ED.FALL ---
HPI - Fall General: Chief Complaint: Fall Stated Complaint: weakness Time Seen by Provider: 08/25/23 09:32 Source: patient Mode of arrival: EMS Limitations: no limitations History of Present Illness: Patient is a 23-year-old male with history of anxiety who presents to the emergency department via EMS due to syncopal episode onset today. Patient was at work at [employer], when he states he suddenly felt dizzy and that he was going to pass out. He then states he remembers waking up on the ground surrounded by paramedics. He notes hitting his head and his right wrist during the fall as well. He states he has a history of passing out like this in the past, last episode being in May. He was not seen for that episode. He notes that he has been under significant stress lately as he has been having marital conflicts and family health issues, and believes that his symptoms are related to this. He denies any cardiac history and denies any palpitations or chest pain prior to his syncopal episode today. His only complaints at this time are some right wrist pain as well as some pain over the frontotemporal region of his head. He denies any visual changes, breathing difficulties, or any other symptoms. He does state that he has been more anxious as of late. Onset (ago): hour(s) Fall from: standing Fall witnessed: yes, by bystander Place fall occurred: work Loss of consciousness: Unsure Prolonged down time: no Symptoms prior to fall: lightheadedness and dizziness Location of injury: head Location of injury - extremities: Right: hand Associated symptoms-after fall: Reports headache(s) and lightheadedness; Denies abdominal pain, chest pain, confusion or neck pain Review of Systems Const: Denies: fever(s), chills, fatigue, night sweats or diaphoresis Eyes: Denies: change in vision or blurry vision Card: Reports: lightheadedness and syncope; Denies: chest pain or palpitations Resp: Denies: dyspnea GI: Denies: abdominal pain : Denies: dysuria, urinary frequency or urinary urgency Musc: Reports: extremity pain (Right wrist/hand); Denies: neck pain, back pain or extremity swelling Skin/Breast: Denies: rash Neuro: Reports: headache(s) and dizziness; Denies: numbness in extremities, weakness in extremities, sensory changes, confusion or Slurred speech present Psych: Reports: anxiety PFSH ED PFSH: Medical History Obesity (BMI 30-39.9) Psychiatric care Puncture wound of foot excluding toes with infection Social History Smoking and tobacco/nicotine status: current every day tobacco/nicotine user e-cigarettes E-Cigarette Details: vaporizer device and with nicotine E-cig/vape details: Refill/3 weeks. Quit status (tobacco/nicotine): has quit using Year quit tobacco: 2021 Second hand smoke exposure: No Alcohol intake: current Alcohol intake frequency: holidays/special occasions only Alcohol type: wine Substance/Drug Use: never Physical Exam Const: COMMON NORMALS: no acute distress and patient oriented x3 GENERAL APPEARANCE: cooperative, comfortable and anxious ORIENTATION/CONSCIOUSNESS: Yes awake, Yes oriented to person, Yes oriented to place and Yes oriented to time HENMT: COMMON NORMALS: normocephalic, atraumatic, hearing grossly normal bilaterally, external ears normal and Normal external nose present HEAD & SCALP: normal to inspection, normocephalic and atraumatic; no Milton's sign and no raccoon eyes FACE & SINUS: normal facial exam NOSE: Normal external nose present EXTERNAL EAR: Yes external ears normal MOUTH: Normal oral and palatal mucosa present, lip normal and tongue normal Eye: COMMON NORMALS: Equal, round and reactive pupils present, EOMs intact bilaterally and normal visual otto by confrontation PUPIL: Yes Equal, round and reactive pupils present Neck/C-Spine: COMMON NORMALS: full ROM and supple Chest: COMMONS NORMALS: normal inspection of the chest and normal palpation of entire chest wall Resp: COMMON NORMALS: normal respiratory effort, No retractions, No use of accessory muscles and clear to auscultation bilaterally AUSCULTATION: clear to auscultation bilaterally Cardio: COMMON NORMALS: regular rate, regular rhythm and No murmurs present (Cardio) RATE: regular rate RHYTHM: regular rhythm GI: COMMON NORMALS: Soft to palpation and No hepatosplenomegaly present AUSCULTATION: Yes normoactive bowel sounds PALPATION: Yes Soft to palpation, No Tenderness to palpation present (GI), No Guarding due to palpation present (GI) and Yes No hepatosplenomegaly present Extremity: COMMON NORMALS: normal to inspection, capillary refill normal, no clubbing, cyanosis or edema, no calf tenderness and no pedal edema RIGHT UPPER EXTREMITY: Yes wrist Right wrist: Yes inspection (No bruising or erythema), Yes palpation (Tender to palpation over the right distal ulna) and Yes ROM (Normal active and passive range of motion, some pain noted with active flex) Neuro: COMMON NORMALS: patient oriented x3, moves all extremities, no focal motor deficits, no sensory deficits noted and deep tendon reflexes 2+ bilaterally SENSORIUM/ORIENTATION: Yes oriented to person, Yes oriented to place and Yes oriented to time SPEECH: speech normal GAIT: Yes Normal gait present Skin: COMMON NORMALS: no rashes or lesions noted GENERAL SKIN EXAM: no rashes or lesions noted Course Vital Signs: Vital signs: Vital Signs Temperature 97.5 F L 08/25/23 09:40 Pulse Rate 78 08/25/23 10:44 Respiratory Rate 18 08/25/23 10:44 Blood Pressure 128/90 08/25/23 10:44 Pulse Oximetry 99 08/25/23 10:44 Oxygen Delivery Me thod Room Air 08/25/23 10:44 MDM - Fall Medical Decision Making This patient was seen and evaluated in the emergency department today for a syncopal episode. Patient brought in by EMS and his only initial complaints were pain to his right wrist and frontotemporal scalp from the fall. His vitals have remained stable throughout his ED course. He reported history of episodes similar to this in the past, states seem to be a significant stress. Examination of the patient was negative for any focal neurological deficits, signs of trauma, or any cardiopulmonary abnormalities. Radiograph of his chest was negative for any cardiopulmonary process. Right hand x-ray was negative for any signs of trauma. CT of his head was also negative for any intracranial abnormalities. CBC and CMP normal. Based on the patient's history and ED work-up, I feel that the patient can be safely discharged home without further work-up. He agrees with this plan. Lab Data 08/25/23 10:00 08/25/23 10:00 Laboratory Results WBC 5.26 10^3/uL (3.29-11.43) 08/25/23 10:00 RBC 5.58 10^6/uL (3.85-5.65) 08/25/23 10:00 Hgb 15.20 g/dL (11.27-16.99) 08/25/23 10:00 Hct 46.1 % (37-53) 08/25/23 10:00 MCV 82.6 fl (82-101) 08/25/23 10:00 MCH 27.2 pg (27-33) 08/25/23 10:00 MCHC 33.0 g/dL (30-55) 08/25/23 10:00 RDW 13.1 % (12.1-15.1) 08/25/23 10:00 Plt Count 200 10^3/cmm (157-399) 08/25/23 10:00 MPV 11.7 fL (7.4-10.4) H 08/25/23 10:00 Neut % (Auto) 64.0 % 08/25/23 10:00 Lymph % (Auto) 27.6 % 08/25/23 10:00 [place] % (Auto) 7.4 % 08/25/23 10:00 Eos % (Auto) 0.4 % 08/25/23 10:00 Baso % (Auto) 0.4 % 08/25/23 10:00 Neut # (Auto) 3.37 10^3/uL (1.8-7.7) 08/25/23 10:00 Lymph # (Auto) 1.5 10^3/uL (0.8-4.8) 08/25/23 10:00 [place] # (Auto) 0.4 10^3/uL (0.2-0.9) 08/25/23 10:00 Eos # (Auto) 0.0 10^3/uL (0.0-0.8) 08/25/23 10:00 Baso # (Auto) 0.0 10^3/uL (0.0-0.1) 08/25/23 10:00 Nucleated RBC % (auto) 0 % 08/25/23 10:00 Nucleated RBCs # 0.0 /100WBC 08/25/23 10:00 Sodium 137 mmol/L (136-145) 08/25/23 10:00 Potassium 3.6 mmol/L (3.5-5.1) 08/25/23 10:00 Chloride 101 mmol/L (98-107) 08/25/23 10:00 Carbon Dioxide 23 mmol/L (22-29) 08/25/23 10:00 Anion Gap 16.6 (5-19) 08/25/23 10:00 BUN 20 mg/dL (6-20) 08/25/23 10:00 Creatinine 0.9 mg/dL (0.7-1.2) 08/25/23 10:00 GFR Calculation 105.5 mL/min (90-130) 08/25/23 10:00 Glucose 97 mg/dL (65-115) 08/25/23 10:00 Calculated Osmolality 287 mOsm/kg (285-295) 08/25/23 10:00 Calcium 10.0 mg/dL (8.5-10.5) 08/25/23 10:00 Total Bilirubin 0.9 mg/dL (0.15-1.2) 08/25/23 10:00 AST 29 U/L (0-40) 08/25/23 10:00 ALT 42 U/L (0-41) H 08/25/23 10:00 Alkaline Phosphatase 119 U/L (40-130) 08/25/23 10:00 Total Protein 7.5 g/dL (6.6-8.7) 08/25/23 10:00 Albumin 4.4 g/dL (3.5-5.2) 08/25/23 10:00 Globulin 3.1 g/dL (1.3-4.6) 08/25/23 10:00 All radiology interpretation(s) finalized by discharge Discharge Plan Discharge Patient Disposition: Home Clinical Impression: Orthostasis Condition: Stable Prescriptions: No Action No Known Home Medications Discharge Orders: Discharge ED (Routine); Ordered 08/25/23 Ordered By: Vinay Griffin Discharge Diet: Usual diet Discharge Activity: Increase activity as tolerated Patient Instructions: Opioid Safety, Pain Management Activity Restrictions/Additional Instructions: Thank you for choosing [facility] for your healthcare needs today. Please realize this is an emergency room and that we are providing you with a medical screening exam and this may not be complete and all inclusive of all the testing and or work up that you may need to determine your ailment or severity of your illness. It is very important that you follow up as instructed or that you return to the Emergency Department should you have concerns or if your condition changes or worsens in any way. You are seen today after a fall. Suspect this is due to orthostasis increasing your fluid intake will help avoid exertional activities for the next couple of days. Recheck if you have any worsening or change symptoms x-rays and scans done in the emergency room were normal. Stand Alone Forms: Work/School Release Coding Level of Care Code ED Agricultural Production Engineer for Marco Antonio Mendiola
[2023-08-25 10:27] LABS: Alanine Aminotransferase 42 U/L (0-41); Albumin Level 4.4 g/dL (3.5-5.2); Alkaline Phosphatase 119 U/L (40-130); Anion Gap 16.6 (5-19); Aspartate Amino Transferase 29 U/L (0-40); Blood Urea Nitrogen 20 mg/dL (6-20); Carbon Dioxide 23 mmol/L (22-29); Chloride 101 mmol/L (98-107); Globulin 3.1 g/dL (1.3-4.6); Glomerular Filtration Rate 105.5 mL/min (90-130); Glucose 97 mg/dL (65-115); Osmolality Calculated 287 mOsm/kg (285-295); Potassium 3.6 mmol/L (3.5-5.1); Sodium 137 mmol/L (136-145); Total Bilirubin 0.9 mg/dL (0.15-1.2); Total Protein 7.5 g/dL (6.6-8.7)
[2023-08-25 10:44] VITALS: BP 128/90; PULSE 78; RESP 18; O2SAT 99
--- NOTE | 2023-08-25 11:23 | XR_ITS ---
WS: [id number] Exam: XR wrist RT min 3V* [id number] Date/Time of Exam: 08/25/2023 11:23 AM Reason For Exam: wrist pain There are no fractures, soft tissue swelling, or unusual calcifications. The wrist shows normal bony alignment. There is no irregularity of the bony architecture. IMPRESSION: Negative RIGHT wrist.
--- NOTE | 2023-08-25 11:23 | CT_ITS ---
WS: [id number] CT HEAD TECHNIQUE: Noncontrast CT of the head obtained from the skullbase to the vertex. CLINICAL INFORMATION: trauma COMPARISON: CT 2006 DLP: 1078.[address] scans at [facility] use at least one of these dose optimization techniques: automated e xposure control; mA and/or kV adjustment per patient size (includes targeted exams where dose is matc hed to clinical indication); or iterative reconstruction. FINDINGS: No evidence of intracranial hemorrhage or mass effect. Ventricular system and basal cisterns are zuñiga nt. No extra-axial fluid collections. No evidence of mass or mass effect. Normal lee-white different iation. Paranasal sinuses and mastoid air cells are well aerated. .Normal visualized soft tissues. IMPRESSION: 1. No evidence of intracranial hemorrhage or mass effect. 2. No acute intracranial findings.
== END 2023-08-25 12:42 | disposition home or self-care (01) ==
PROVIDERS: Emergency Provider Family Medicine
DX: I95.1 Orthostatic hypotension (principal); F17.290 Nicotine dependence, other tobacco product, uncomplicated
CPT/HCPCS: 36415; 70450; 71045; 73110; 80053; 85025; 99285

== ENCOUNTER 2023-11-14 11:46 | Emergency (ER) | payer OTHER, SELFPAY ==
--- NOTE | 2023-11-14 11:47 | XR_ITS ---
WS: [id number] XR chest 1V portable [id number] REASON FOR EXAM: cp FINDINGS: Chest is unchanged compared to 08/15/2023. The heart and the mediastinum are within normal limits. Calcified granulomatous disease bilaterally. No acute pulmonary parenchymal or pleural abnormality. No significant abnormality of the bony thorax. IMPRESSION: Stable chest without acute abnormality.
--- NOTE | 2023-11-14 11:51 | ECG_ITS ---
[facility] Test Date: 2023-11-14 Pat Name: Norman Lozano Department: Room: Gender: Male Counter Control Operator: : 2000 Requested By: Damien Carey Order Number: [id number] Kalina MD: Tico Silva M.D. Measurements Intervals [place] Rate: 93 P: 35 ID: 143 QRS: 46 QRSD: 82 T: 32 QT: 334 QTc: 416 Interpretive Statements SINUS RHYTHM Compared to ECG 05/17/2023 11:43:39 No significant changes Electronically Signed On 11-14-2023 14:53:29 ABSTRACT CHECKER by Tico Silva M.D. [id number]
[2023-11-14 11:54] VITALS: BP 146/80; PULSE 89; RESP 16; TEMP 36.6; O2SAT 97; BMI 40.6
--- NOTE | 2023-11-14 12:20 | ECG_ITS ---
[facility] Test Date: 2023-11-14 Pat Name: Normna Lozano Department: Room: Gender: Male Circuit Board Inspector: : 2000 Requested By: Damien Carey Order Number: [id number] Kalina MD: Tico Silva M.D. Measurements Intervals [place] Rate: 87 P: 30 PA: 145 QRS: 49 QRSD: 85 T: 23 QT: 348 QTc: 419 Interpretive Statements SINUS RHYTHM POSSIBLE ANTERIOR MYOCARDIAL INFARCTION , OF INDETERMINATE AGE [30 ms Q WAVE IN V3/V4, OR R < 0.2 mV IN V4] Compared to ECG 11/14/2023 11:51:07 Myocardial infarct finding now present Electronically Signed On 11-14-2023 14:53:25 DENTAL RESIDENT by Tico Sivla M.D. [id number]
--- NOTE | 2023-11-14 12:49 | ED_ITS ---
HPI - Chest Pain 2 General: Chief Complaint: Chest Pain Stated Complaint: chest pain Time Seen by Provider: 11/14/23 12:08 Source: patient Mode of arrival: ambulatory Limitations: no limitations History of Present Illness: 23-year-old male who states that over e last 2 to 3 days he has been having left-sided chest pain states he is also some shortness of breath he states it hurts worse with deep inspiration along with some exertion. No history of heart disease he has not had no recent trip or surgery denies any history of blood clots. No fever no cough. Associated symptoms: Reports dyspnea; Deny abdominal pain, fever(s), nausea or vomiting Review of Systems 2 Const: Denies: fever(s), chills, body aches or change in appetite ENMT: Denies: throat pain or dental pain Card: Reports: chest pain Resp: Reports: dyspnea GI: Denies: abdominal pain, nausea, vomiting or diarrhea : Denies: dysuria Musc: Denies: neck pain or back pain Skin/Breast: Denies: rash Neuro: Denies: headache(s) PFSH ED 2 PFSH: Medical History Psychiatric care Obesity (BMI 30-39.9) Puncture wound of foot excluding toes with infection Social History Smoking and tobacco/nicotine status: current every day tobacco/nicotine user e- cigarettes E-Cigarette Details: vaporizer device and with nicotine E-cig/vape details: Refill/3 weeks. Quit status (tobacco/nicotine): has quit using Year quit tobacco: 2021 Second hand smoke exposure: No Alcohol intake: current Alcohol intake frequency: holidays/special occasions only Alcohol type: wine Substance/Drug Use: never Physical Exam 2 Const: COMMON NORMALS: no acute distress, patient oriented x3 and healthy appearing HENMT: COMMON NORMALS: normocephalic and atraumatic HEAD & SCALP: n ormocephalic and atraumatic Eye: COMMON NORMALS: Equal, round and reactive pupils present and EOMs intact bilaterally PUPIL: Yes Equal, round and reactive pupils present Neck/C-Spine: COMMON NORMALS: full ROM and supple Chest: COMMONS NORMALS: normal inspection of the chest and normal palpation of entire chest wall Resp: COMMON NORMALS: normal respiratory effort, No retractions, No use of accessory muscles and clear to auscultation bilaterally AUSCULTATION: clear to auscultation bilaterally Cardio: COMMON NORMALS: regular rate, regular rhythm and No murmurs present (Cardio) RATE: regular rate RHYTHM: regular rhythm Extremity: COMMON NORMALS: normal to inspection and full ROM Neuro: COMMON NORMALS: patient oriented x3, moves all extremities and no focal motor deficits Psych: COMMON NORMALS: mental status grossly normal, Normal thought process present and cooperative THOUGHT PROCESS: Normal thought process present Skin: COMMON NORMALS: no rashes or lesions noted and no wounds GENERAL SKIN EXAM: no rashes or lesions noted Course 2 Vital Signs: Vital signs: Vital Signs Temperature 97.8 F 11/14/23 11:54 Pulse Rate 89 11/14/23 11:54 Respiratory Rate 16 11/14/23 11:54 Blood Pressure 146/80 11/14/23 11:54 Pulse Oximetry 97 11/14/23 11:54 Oxygen Delivery Me thod Room Air 11/14/23 11:54 MDM - Chest Pain Medical Decision Making Patient presents here with chest pain that is likely muscle skeletal in origin troponin here is negative D-dimer is negative he has no signs of dissection we will place him on Naprosyn he is to follow-up with PCP and return if worsening. Medical Records I reviewed the patient's medical records. Lab Data I reviewed the patient's lab results. 11/14/23 12:30 11/14/23 12:30 Laboratory Results WBC 5.67 10^3/uL (3.29-11.43) 11/14/23 12:30 RBC 5.45 10^6/uL (3.85-5.65) 11/14/23 12:30 Hgb 14.90 g/dL (11.27-16.99) 11/14/23 12:30 Hct 45.2 % (37-53) 11/14/23 12:30 MCV 82.9 fl (82-101) 11/14/23 12:30 MCH 27.3 pg (27-33) 11/14/23 12:30 MCHC 33.0 g/dL (30-55) 11/14/23 12:30 RDW 14.0 % (12.1-15.1) 11/14/23 12:30 Plt Count 200 10^3/cmm (157-399) 11/14/23 12:30 MPV 12.0 fL (7.4-10.4) H 11/14/23 12:30 Neut % (Auto) 59.7 % 11/14/23 12:30 Lymph % (Auto) 31.6 % 11/14/23 12:30 Maury % (Auto) 6.9 % 11/14/23 12:30 Eos % (Auto) 1.1 % 11/14/23 12:30 Baso % (Auto) 0.5 % 11/14/23 12:30 Neut # (Auto) 3.39 10^3/uL (1.8-7.7) 11/14/23 12:30 Lymph # (Auto) 1.8 10^3/uL (0.8-4.8) 11/14/23 12:30 Maury # (Auto) 0.4 10^3/uL (0.2-0.9) 11/14/23 12:30 Eos # (Auto) 0.1 10^3/uL (0.0-0.8) 11/14/23 12:30 Baso # (Auto) 0.0 10^3/uL (0.0-0.1) 11/14/23 12:30 Nucleated RBC % (auto) 0 % 11/14/23 12:30 Nucleated RBCs # 0.0 /100WBC 11/14/23 12:30 D-Dimer 0.37 ug/mLFEU (0-0.59) 11/14/23 12:30 Sodium 140 mmol/L (136-145) 11/14/23 12:30 Potassium 4.1 mmol/L (3.5-5.1) 11/14/23 12:30 Chloride 104 mmol/L (98-107) 11/14/23 12:30 Carbon Dioxide 23 mmol/L (22-29) 11/14/23 12:30 Anion Gap 17.1 (5-19) 11/14/23 12:30 BUN 18 mg/dL (6-20) 11/14/23 12:30 Creatinine 0.8 mg/dL (0.7-1.2) 11/14/23 12:30 GFR Calculation 120.9 mL/min (90-130) 11/14/23 12:30 Glucose 104 mg/dL (65-115) 11/14/23 12:30 Calculated Osmolality 292 mOsm/kg (285-295) 11/14/23 12:30 Calcium 9.9 mg/dL (8.5-10.5) 11/14/23 12:30 Total Bilirubin 0.5 mg/dL (0.15-1.2) 11/14/23 12:30 AST 29 U/L (0-40) 11/14/23 12:30 ALT 43 U/L (0-41) H 11/14/23 12:30 Alkaline Phosphatase 118 U/L (40-130) 11/14/23 12:30 Troponin T Baseline < 6 ng/L (0-15) 11/14/23 12:30 Total Protein 7.2 g/dL (6.6-8.7) 11/14/23 12:30 Albumin 4.4 g/dL (3.5-5.2) 11/14/23 12:30 Globulin 2.8 g/dL (1.3-4.6) 11/14/23 12:30 All radiology interpretation(s) finalized by discharge EKG Data EKG 1: I personally reviewed and interpreted this EKG as follows: EKG interpretation date: 11/14/23 EKG interpretation time: 12:46 Interpretation: nsr hr [address] or t wave abnormalitie qrs 85 qtc 392 Discharge Plan Discharge Patient Disposition: Home Clinical Impression: Chest pain Condition: Stable Prescriptions: New naproxen [Naprosyn] 500 mg tablet 500 mg PO BID PRN (Reason: pain) Qty: 20 0RF Discharge Orders: Discharge ED (Routine); Ordered 11/14/23 Ordered By: Damien Carey Discharge Diet: Advance as tolerated Discharge Activity: Resume usual activity Patient Instructions: Chest Pain (ED) Coding Level of Care Code ED Protocol Officer for Marco Antonio Mendiola
[2023-11-14 12:56] LABS: Basophils % 0.5 %; Eosinophils # 0.1 10^3/uL (0.0-0.8); Eosinophils % 1.1 %; Hematocrit 45.2 % (37-53); Lymphocytes # 1.8 10^3/uL (0.8-4.8); Lymphocytes % 31.6 %; Mean Corpuscular Hemoglobin 27.3 pg (27-33); Mean Corpuscular Volume 82.9 fl (82-101); Monocytes # 0.4 10^3/uL (0.2-0.9); Monocytes % 6.9 %; Neutrophils # 3.39 10^3/uL (1.8-7.7); Neutrophils % 59.7 %; Nucleated Red Blood Cells % 0 %; Platelet Count 200 10^3/cmm (157-399); Red Blood Count 5.45 10^6/uL (3.85-5.65); White Blood Count 5.67 10^3/uL (3.29-11.43)
[2023-11-14 13:15] LABS: D Dimer 0.37 ug/mLFEU (0-0.59); Troponin(5th) Baseline < 6 ng/L (0-15)
[2023-11-14 13:18] LABS: Alanine Aminotransferase 43 U/L (0-41); Albumin Level 4.4 g/dL (3.5-5.2); Alkaline Phosphatase 118 U/L (40-130); Anion Gap 17.1 (5-19); Aspartate Amino Transferase 29 U/L (0-40); Blood Urea Nitrogen 18 mg/dL (6-20); Calcium 9.9 mg/dL (8.5-10.5); Carbon Dioxide 23 mmol/L (22-29); Chloride 104 mmol/L (98-107); Globulin 2.8 g/dL (1.3-4.6); Glomerular Filtration Rate 120.9 mL/min (90-130); Glucose 104 mg/dL (65-115); Osmolality Calculated 292 mOsm/kg (285-295); Potassium 4.1 mmol/L (3.5-5.1); Sodium 140 mmol/L (136-145); Total Bilirubin 0.5 mg/dL (0.15-1.2); Total Protein 7.2 g/dL (6.6-8.7)
[2023-11-14 13:51] VITALS: BP 142/94; PULSE 86; O2SAT 97
== END 2023-11-14 13:54 | disposition home or self-care (01) ==
PROVIDERS: Emergency Provider Emergency Medicine
DX: R07.9 Chest pain, unspecified (principal); F17.290 Nicotine dependence, other tobacco product, uncomplicated
CPT/HCPCS: 36415; 71045; 80053; 84484; 85025; 85378; 93005; 99285

== ENCOUNTER 2023-11-16 19:58 | Emergency (ER) | payer OTHER, SELFPAY ==
--- NOTE | 2023-11-16 20:00 | XRR_ITS ---
PROCEDURE INFORMATION: Exam: XR Left Ankle Exam date and time: 11/16/2023 8:46 PM Age: 23 years old Clinical indication: Injury or trauma; Other: Kicked object; Other: Unknown TECHNIQUE: Imaging protocol: Radiologic exam of the left ankle. Views: 3 or more views. COMPARISON: CR XR ankle LT min 3V* [id number] 02/25/2017 10:23 AM FINDINGS: Bones/joints: Normal. Soft tissues: Normal. XR/XR ankle LT min 3V* [id number] IMPRESSION: No acute fracture or dislocation. No ankle joint effusion.
--- NOTE | 2023-11-16 20:00 | XRR_ITS ---
PROCEDURE INFORMATION: Exam: XR Left Foot Exam date and time: 11/16/2023 8:46 PM Age: 23 years old Clinical indication: Injury or trauma; Other: Kicked object; Swelling (edema); Ankle; Left TECHNIQUE: Imaging protocol: Radiologic exam of the left foot. Views: 3 or more views. COMPARISON: CR XR ankle LT min 3V* [id number] 11/16/2023 8:46 PM FINDINGS: Bones/joints: Normal. Soft tissues: Mild soft tissue swelling at the dorsum of the metatarsal bones. XR/XR foot LT min 3V* [id number] IMPRESSION: No acute fracture or dislocation.
[2023-11-16 20:03] VITALS: BP 162/77; PULSE 93; RESP 16; TEMP 36.6; O2SAT 98
--- NOTE | 2023-11-16 20:09 | ED_ITS ---
HPI - Extremity Problem General: Chief complaint: Extremity Injury, Lower Stated complaint: left foot injury Time Seen by Provider: 11/16/23 20:06 History of Present Illness: 23-year-old male patient comes in for in jury to the left lateral foot last night. Patient reports striking it against a entertainment center at home. Patient has some pain lateral aspect of the foot with ambulation. No obvious deformity is noted. Patient is weightbearing. Review of Systems General: Reports: 10 or more systems reviewed and unremarkable except in HPI and below Musc: Reports: extremity pain PFSH ED PFSH: Medical History Psychiatric care Obesity (BMI 30-39.9) Puncture wound of foot excluding toes with infection Social History Smoking and tobacco/nicotine status: current every day tobacco/nicotine user e- cigarettes E-Cigarette Details: vaporizer device and with nicotine E-cig/vape details: Refill/3 weeks. Quit status (tobacco/nicotine): has quit using Year quit tobacco: 2021 Second hand smoke exposure: No Alcohol intake: current Alcohol intake frequency: holidays/special occasions only Alcohol type: wine Substance/Drug Use: never Physical Exam Const: COMMON NORMALS: alert HENMT: COMMON NORMALS: atraumatic HEAD & SCALP: atraumatic Neck/C-Spine: COMMON NORMALS: full ROM Resp: COMMON NORMALS: normal respiratory effort Cardio: COMMON NORMALS: regular rate RATE: regular rate Back/Pelvis: COMMON NORMALS: thoracic and lumbar spine normal to inspection Extremity: LEFT LOWER EXTREMITY: Yes foot & digits (Mild swelling, no deformity) Neuro: SENSORIUM/ORIENTATION: Yes alert Skin: COMMON NORMALS: turgor normal GENERAL SKIN EXAM: turgor normal Course Vital Signs: Vital signs: Vital Signs Temperature 98 F 11/16/23 20:03 Pulse Rate 93 11/16/23 20:03 Respiratory Rate 16 11/16/23 20:03 Blood Pressure 162/77 11/16/23 20:03 Pulse Oximetry 98 11/16/23 20:03 Oxygen Delivery Me thod Room Air 11/16/23 20:03 MDM - Extremity (Nontraumatic) Medical Decision Making Patient comes in for evaluation of injury to left foot. On exam patient has some lateral tenderness and mild swelling. Pulses are intact. Differential diagnosis includes fracture, sprain, contusion. X-ray noted no fracture. Reviewed exam with patient with recommendations for treatment and follow-up. Patient reported understanding. XR interpretation done by ED provider, pending radiology final review Discharge Plan Discharge Patient Disposition: Home Clinical Impression: Foot sprain Qualifiers: Encounter type: initial encounter Laterality: left Qualified Code(s): S93.602A - Unspecified sprain of left foot, initial encounter Condition: Stable Prescriptions: No Action Naprosyn 500 mg tablet 500 mg PO BID PRN (Reason: pain) Qty: 20 0RF Discharge Orders: Discharge ED (Routine); Ordered 11/16/23 Ordered By: Gilmer Rubio Referrals: Olivier Short MD [Primary Care Provider] - Discharge Diet: Usual diet Discharge Activity: Increase activity as tolerated Patient Instructions: Foot Sprain (ED) Activity Restrictions/Additional Instructions: Activity as tolerated. Use ice as needed for pain. Use Tylenol and ibuprofen for further pain relief. Follow-up with primary care. Coding Level of Care Code ED Career Technology Teacher for Marco Antonio Mendiola
[2023-11-16 21:38] VITALS: BP 154/78; PULSE 85; RESP 16; O2SAT 98
== END 2023-11-16 21:39 | disposition home or self-care (01) ==
PROVIDERS: Emergency Provider Nurse Practitioner Family; PCP Family Medicine
DX: S93.602A Unspecified sprain of left foot, initial encounter (principal); F17.290 Nicotine dependence, other tobacco product, uncomplicated; W22.8XXA Striking against or struck by other objects, initial encounter
CPT/HCPCS: 73610; 73630; 99283; E0114

== ENCOUNTER 2024-03-20 16:00 | Outpatient (CLI) | payer OTHER, SELFPAY | END 2024-03-20 16:01 | disposition home or self-care (01) | LOC: SLEEP 03-21 19:55 | PROVIDERS: PCP Family Medicine; Visit Provider Family Medicine | DX: G47.10 Hypersomnia, unspecified (principal) | CPT/HCPCS: G0399 ==

== ENCOUNTER 2024-07-31 07:53 | Emergency (ER) | payer OTHER, SELFPAY ==
[2024-07-31] VITALS (8 sets, daily range): BP systolic 126–164; BP diastolic 70–103; PULSE 62–84; RESP 16–19; TEMP 36.6; O2SAT 94–98; BMI 42.5
--- NOTE | 2024-07-31 07:55 | ECG_ITS ---
[facility] Test Date: 2024-07-31 Pat Name: Norman Lozano Department: Room: Gender: Male Operations Intern: : 2000 Requested By: Vinay Sandoval Order Number: [id number] Kalina MD: CAROL EDWARD Measurements Intervals [place] Rate: 73 P: 34 [place]: 141 QRS: 50 QRSD: 92 T: 32 QT: 351 QTc: 387 Interpretive Statements SINUS RHYTHM Compared to ECG 11/14/2023 12:46:17 Myocardial infarct finding no longer present Electronically Signed On 07-31-2024 20:58:18 CDT by CAROL EDWARD [id number]
--- NOTE | 2024-07-31 08:02 | XR_ITS ---
WS: [id number] Exam: XR chest 1V portable [id number] Date/Time of Exam: 07/31/2024 8:02 AM Reason For Exam: dyspnea/cough Comparison 11/14/2023. The lungs are clear and fully expanded. Normal cardiomediastinal silhouette. Regional bony structures are intact. Scattered small calcified granulomas. XR/XR chest 1V portable [id number] IMPRESSION: 1. No acute cardiopulmonary finding.
--- NOTE | 2024-07-31 08:49 | W.ED.CHESTPA ---
HPI - Chest Pain General: Chief Complaint: Chest Pain Stated Complaint: chest pain, tightness, irregular heart beat Time Seen by Provider: 07/31/24 08:01 History of Present Illness: 24-year-old male presents emergency room complaining of chest pain. Presents to the emergency room complaining of chest tightness pain and irregular heartbeat. Not had any fever sweats chills no productive cough. No history of PE or DVT. No fever sweats or chills chest discomfort been ongoing for 5 days. Associated symptoms: Deny abdominal pain, dyspnea or fever(s) Related Data Home Medications Medication Instructions Recorded Confirmed acetaminophen 325 mg tablet 325 mg PO QID PRN Pain 07/31/24 07/31/24 (Tylenol) Previous Rx's Medication Instructions Recorded pantoprazole 40 mg tablet,delayed 40 mg PO BID #40 tabs 07/31/24 release Allergies Allergy/AdvReac Type Severity Reaction Status Date / Time No Known Allergies Allergy Verified 11/18/23 14:17 Review of Systems Const: Denies: fever(s) or chills Card: Reports: chest pain Resp: Denies: dyspnea GI: Denies: abdominal pain : Denies: dysuria, urinary frequency or urinary urgency Musc: Denies: neck pain or back pain Skin/Breast: Denies: rash PFSH ED PFSH: Medical History Nicotine use disorder Moderate major depression Obesity (BMI 30-39.9) Puncture wound of foot excluding toes with infection Social History Smoking and tobacco/nicotine status: current every day tobacco/nicotine user e-cigarettes E-Cigarette Details: vaporizer device and with nicotine E-cig/vape details: Refill/3 weeks. Quit status (tobacco/nicotine): has quit using Year quit tobacco: 2021 Second hand smoke exposure: No Alcohol intake: current Alcohol intake frequency: holidays/special occasions only Alcohol type: wine Substance/Drug Use: never Physical Exam Const: COMMON NORMALS: no acute distress GENERAL APPEARANCE: cooperative and comfortable ORIENTATION/CONSCIOUSNESS: Yes awake, Yes oriented to person, Yes oriented to place and Yes oriented to time HENMT: COMMON NORMALS: normocephalic, atraumatic and hearing grossly normal bilaterally HEAD & SCALP: normocephalic and atraumatic Resp: COMMON NORMALS: normal respiratory effort, No retractions, No use of accessory muscles and clear to auscultation bilaterally AUSCULTATION: clear to auscultation bilaterally Cardio: COMMON NORMALS: regular rate, regular rhythm and No murmurs present (Cardio) RATE: regular rate RHYTHM: regular rhythm GI: COMMON NORMALS: Soft to palpation and No hepatosplenomegaly present AUSCULTATION: Yes normoactive bowel sounds PALPATION: Yes Soft to palpation, No Tenderness to palpation present (GI), No Guarding due to palpation present (GI) and Yes No hepatosplenomegaly present Extremity: COMMON NORMALS: normal to inspection, capillary refill normal, no clubbing, cyanosis or edema, no calf tenderness and no pedal edema Neuro: SENSORIUM/ORIENTATION: Yes oriented to person, Yes oriented to place and Yes oriented to time Skin: COMMON NORMALS: no rashes or lesions noted GENERAL SKIN EXAM: no rashes or lesions noted Course Vital Signs: Vital signs: Vital Signs Temperature 97.9 F 07/31/24 08:01 Pulse Rate 78 07/31/24 12:43 Respiratory Rate 18 07/31/24 12:43 Blood Pressure 140/70 07/31/24 12:43 Pulse Oximetry 98 07/31/24 12:43 Oxygen Delivery Me thod Room Air 07/31/24 11:00 MDM - Chest Pain Medical Decision Making Thank you for choosing [facility] for your healthcare needs today. It is very important that you follow up as instructed or that you return to the Emergency Department should you have concerns or if your condition changes or worsens in any way. You are seen in the emergency room with complaints of chest discomfort. EKG does not show any acute changes and her cardiac enzymes are normal. Suspect her chest discomfort was related to GI source discomfort. Will start on pantoprazole 40 mg twice a day for 10 days then once daily after that. Follow-up with your primary care doctor. You are also given recommendations for diet to limit discomfort. Lab Data 07/31/24 08:51 07/31/24 08:51 Radiology Impressions Chest X-Ray 07/31/24 08:02 IMPRESSION: 1. No acute cardiopulmonary finding. Laboratory Results WBC 4.39 10^3/uL (3.29-11.43) 07/31/24 08:51 RBC 5.32 10^6/uL (3.85-5.65) 07/31/24 08:51 Hgb 14.40 g/dL (11.27-16.99) 07/31/24 08:51 Hct 44.5 % (37-53) 07/31/24 08:51 MCV 83.6 fl (82-101) 07/31/24 08:51 MCH 27.1 pg (27-33) 07/31/24 08:51 MCHC 32.4 g/dL (30-55) 07/31/24 08:51 RDW 13.7 % (12.1-15.1) 07/31/24 08:51 Plt Count 177 10^3/cmm (157-399) 07/31/24 08:51 MPV 12.2 fL (7.4-10.4) H 07/31/24 08:51 Neut % (Auto) 54.1 % 07/31/24 08:51 Lymph % (Auto) 34.9 % 07/31/24 08:51 [place]ander % (Auto) 8.9 % 07/31/24 08:51 Eos % (Auto) 1.4 % 07/31/24 08:51 Baso % (Auto) 0.7 % 07/31/24 08:51 Neut # (Auto) 2.38 10^3/uL (1.8-7.7) 07/31/24 08:51 Lymph # (Auto) 1.5 10^3/uL (0.8-4.8) 07/31/24 08:51 [place]ander # (Auto) 0.4 10^3/uL (0.2-0.9) 07/31/24 08:51 Eos # (Auto) 0.1 10^3/uL (0.0-0.8) 07/31/24 08:51 Baso # (Auto) 0.0 10^3/uL (0.0-0.1) 07/31/24 08:51 Nucleated RBC % (auto) 0 % 07/31/24 08:51 Nucleated RBCs # 0.0 /100WBC 07/31/24 08:51 Sodium 141 mmol/L (136-145) 07/31/24 08:51 Potassium 4.4 mmol/L (3.5-5.1) 07/31/24 08:51 Chloride 104 mmol/L (98-107) 07/31/24 08:51 Carbon Dioxide 26 mmol/L (22-29) 07/31/24 08:51 Anion Gap 15.4 (5-19) 07/31/24 08:51 BUN 17 mg/dL (6-20) 07/31/24 08:51 Creatinine 0.8 mg/dL (0.7-1.2) 07/31/24 08:51 GFR Calculation 119.8 mL/min (90-130) 07/31/24 08:51 Glucose 97 mg/dL (65-115) 07/31/24 08:51 Calculated Osmolality 293 mOsm/kg (285-295) 07/31/24 08:51 Calcium 9.4 mg/dL (8.5-10.5) 07/31/24 08:51 Total Bilirubin 0.5 mg/dL (0.15-1.2) 07/31/24 08:51 AST 27 U/L (0-40) 07/31/24 08:51 ALT 45 U/L (0-41) H 07/31/24 08:51 Alkaline Phosphatase 119 U/L (40-130) 07/31/24 08:51 Troponin T Baseline 10 ng/L (0-15) 07/31/24 08:51 Troponin T 120 Minute 6.90 ng/L (0-15) 07/31/24 10:28 Delta Troponin T -3.10 ABS# (0-10) L 07/31/24 10:28 Total Protein 7.0 g/dL (6.6-8.7) 07/31/24 08:51 Albumin 4.5 g/dL (3.5-5.2) 07/31/24 08:51 Globulin 2.5 g/dL (1.3-4.6) 07/31/24 08:51 TSH 1.48 uIU/mL (0.27-4.20) 07/31/24 08:51 Urine Opiates Screen Negative ng/mL (Negative) 07/31/24 09:30 Ur Barbiturates Screen Negative ng/mL (Negative) 07/31/24 09:30 Ur Phencyclidine Scrn Negative ng/mL (Negative) 07/31/24 09:30 Ur Amphetamines Screen Negative ng/mL (Negative) 07/31/24 09:30 U Benzodiazepines Scrn Negative ng/mL (Negative) 07/31/24 09:30 Urine Cocaine Screen Negative ng/mL (Negative) 07/31/24 09:30 U Marijuana (THC) Screen Negative ng/mL (Negative) 07/31/24 09:30 All radiology interpretation(s) finalized by discharge Discharge Plan Discharge Patient Disposition: Home Clinical Impression: Chest pain due to gastrointestinal reflux disease Condition: Stable Prescriptions: New pantoprazole 40 mg tablet,delayed release (DR/EC) 40 mg PO BID Qty: 40 0RF Rx Instructions: 1 p.o. twice daily for 10 days then 1 daily. No Action acetaminophen [Tylenol] 325 mg Tablet 325 mg PO QID PRN (Reason: Pain) Discharge Orders: Discharge ED (Routine); Ordered 07/31/24 Ordered By: Vinay Griffin Referrals: Olivier Short MD [Primary Care Provider] - Discharge Diet: As Directed Discharge Activity: Resume usual activity Patient Instructions: Diet for Stomach Ulcers and Gastritis (ED), GERD (Gastroesophageal Reflux Disease) (ED), Opioid Safety, Pain Management Coding Level of Care Code ED Child Day Care Teacher for Marco Antonio Mendiola
[2024-07-31 09:27] LABS: Basophils % 0.7 %; Eosinophils # 0.1 10^3/uL (0.0-0.8); Eosinophils % 1.4 %; Hematocrit 44.5 % (37-53); Lymphocytes # 1.5 10^3/uL (0.8-4.8); Lymphocytes % 34.9 %; Mean Corpuscular HGB Conc 32.4 g/dL (30-55); Mean Corpuscular Hemoglobin 27.1 pg (27-33); Mean Corpuscular Volume 83.6 fl (82-101); Mean Platelet Volume 12.2 fL (7.4-10.4); Monocytes # 0.4 10^3/uL (0.2-0.9); Monocytes % 8.9 %; Neutrophils # 2.38 10^3/uL (1.8-7.7); Neutrophils % 54.1 %; Nucleated Red Blood Cells % 0 %; Platelet Count 177 10^3/cmm (157-399); Red Blood Count 5.32 10^6/uL (3.85-5.65); Red Cell Distribution Width 13.7 % (12.1-15.1); White Blood Count 4.39 10^3/uL (3.29-11.43)
[2024-07-31 09:49] LABS: Amphetamines Screen Urine Negative (Negative); Barbiturates Screen Urine Negative (Negative); Benzodiazepines Screen Urine Negative (Negative); Cocaine Screen Urine Negative (Negative); Opiate Screen Urine Negative (Negative); PCP Screen Urine Negative (Negative); THC Screen Urine Negative (Negative)
[2024-07-31 09:49] LABS: Troponin(5th) Baseline 10 ng/L (0-15)
[2024-07-31 10:24] LABS: Alanine Aminotransferase 45 U/L (0-41); Albumin Level 4.5 g/dL (3.5-5.2); Alkaline Phosphatase 119 U/L (40-130); Anion Gap 15.4 (5-19); Aspartate Amino Transferase 27 U/L (0-40); Blood Urea Nitrogen 17 mg/dL (6-20); Calcium 9.4 mg/dL (8.5-10.5); Carbon Dioxide 26 mmol/L (22-29); Chloride 104 mmol/L (98-107); Creatinine Clr Calc Pharmacy 228.2889; Globulin 2.5 g/dL (1.3-4.6); Glomerular Filtration Rate 119.8 mL/min (90-130); Glucose 97 mg/dL (65-115); Osmolality Calculated 293 mOsm/kg (285-295); Potassium 4.4 mmol/L (3.5-5.1); Sodium 141 mmol/L (136-145); Thyroid Stimulating Hormone 1.48 uIU/mL (0.27-4.20); Total Bilirubin 0.5 mg/dL (0.15-1.2)
--- NOTE | 2024-07-31 10:54 | ECG_ITS ---
[facility] Test Date: 2024-07-31 Pat Name: Norman Lozano Department: Room: Gender: Male Global Logistics Analyst: : 2000 Requested By: Vinay Sandoval Order Number: [id number] Reading MD: CAROL EDWARD Measurements Intervals [place] Rate: 69 P: 22 [place]: 153 QRS: 48 QRSD: 89 T: 27 QT: 370 QTc: 396 Interpretive Statements SINUS RHYTHM WITH SINUS ARRHYTHMIA Compared to ECG 07/31/2024 07:55:41 No significant changes Electronically Signed On 07-31-2024 21:05:45 CDT by CAROL EDWARD [id number]
== END 2024-07-31 12:47 | disposition home or self-care (01) ==
PROVIDERS: Emergency Provider Family Medicine; PCP Family Medicine
DX: K21.9 Gastro-esophageal reflux disease without esophagitis (principal); F17.290 Nicotine dependence, other tobacco product, uncomplicated
CPT/HCPCS: 36415; 71045; 80053; 80306; 84443; 84484; 85025; 93005; 99285

== ENCOUNTER 2025-04-13 13:55 | Emergency (ER) | payer OTHER, SELFPAY ==
--- NOTE | 2025-04-13 13:59 | ECG_ITS ---
[facility] Test Date: 2025-04-13 Pat Name: Norman Lozano Department: Room: Gender: Male Carpet Renovator: : 2000 Requested By: Vinay Sandoval Order Number: [id number] Reading MD: Measurements Intervals [place] Rate: 81 P: 27 [place]: 137 QRS: 43 QRSD: 87 T: 33 QT: 347 QTc: 404 Interpretive Statements SINUS RHYTHM Compared to ECG 07/31/2024 10:53:53 Sinus arrhythmia no longer present [id number] [id number]
--- OUTSIDE RECORDS SUMMARY | 2025-04-13 14:02 | XMS_ITS | Encounter Summary ---
Author Organization [facility] Address [address] [place] [address] Care Team Providers Care Hearing Examiner Name Role Phone Peter Vines MD Primary Care Provider Unava ilable Encounter Details Date Type Department Care Team (Late st Contact Info) Description 10/06/2007 Outpatient Historical [facility] [place] [facility] [address] [place] [id number] Peter Vines MD NO ADDRESS ON FILE Social History Tobacco Use Types Packs/Day Years Used Date Smoking Tobacco: Never Assessed Sex and Gender Information Value Date Recorded Sex Assigned at Not on file Legal Sex 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
--- OUTSIDE RECORDS SUMMARY | 2025-04-13 14:02 | XMS_ITS | Encounter Summary ---
Author Organization [facility] Address [address] [place] [address] Care Team Providers Care Workplace Relations Adviser Name Role Phone Peter Vines MD Primary Care Provider Unava ilable Encounter Details Date Type Department Care Team (Latest Contact Info) Description 01/14/2006 Outpatient Historical [facility] Pediatrics-[facility] [place] [address] [place] [id number] Peter Vines MD NO ADDRESS ON FILE Routine Child Health Exam (Primary Dx) Social History Tobacco Use Types Packs/Day Years Used Date Smoking Tobacco: Never Assessed Sex and Gender Information Value Date Recorded Sex Assigned at Not on file 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
--- OUTSIDE RECORDS SUMMARY | 2025-04-13 14:02 | XMS_ITS | Encounter Summary ---
Author Organization [facility] Address [address] [place] [address] Care Team Providers Care Loan Approver Name Role Phone Peter Vines MD Primary Care Provider Unava ilable Encounter Details Date Type Department Care Team (Latest Contact Info) Description 04/10/2007 Outpatient Historical [facility] [place] [address] [place] [address] Peter Vines MD NO ADDRESS ON FILE Attention Deficit Disorder with Hyperactivity (Primary Dx) Social History Tobacco Use Types Packs/Day Years Used Date Smoking Tobacco: Never Assessed Sex and Gender Information Value Date Recorded Sex Assigned at Not on file Legal Sex Male 3:28 AM AUTOMATIC SEAMER Gender Identity Not on file Sexual Orientation Not on file documented as of this encounter Plan of Treatment Not on file documented as of this encounter Visit Diagnoses Diagnosis Attention deficit disorder with hyperactivity(314.01)- Primary Attention deficit disorder with hyperactivity documented in this encounter Care Teams Loan Approver Relationship Specialty Start Date End Date Peter Vines MD PCP - General 10/17/07 documented as of this encounter
--- OUTSIDE RECORDS SUMMARY | 2025-04-13 14:02 | XMS_ITS | Encounter Summary ---
Author Organization [facility] Address [address] [place] [address] Care Team Providers Care Dragline Operator Name Role Phone Peter Vines MD Primary Care Provider Unava ilable Encounter Details Date Type Department Care Team (Latest Contact Info) Description 02/01/[address] [facility] [place] [address] [place] [address] Peter Vines MD NO ADDRESS ON FILE Routine Child Health Exam (Primary Dx); Attention Deficit Disorder with Hyperactivity Social History Tobacco Use Types Packs/Day Years Used Date Smoking Tobacco: Never Assessed Sex and Gender Information Value Date Recorded Sex Assigned at Not on file Legal Sex Male 3:28 AM WAFER POLISHER Gender Identity Not on file Sexual Orientation Not on file documented as of this encounter Plan of Treatment Not on file documented as of this encounter Visit Diagnoses Diagnosis Routine child health exam- Primary Routine or child health check Attention deficit disorder with hyperactivity(314.01) Attention deficit disorder with hyperactivity documented in this encounter Care Teams Dragline Operator Relationship Specialty Start Date End Date Peter Vines MD PCP - General 10/17/07 documented as of this encounter
--- OUTSIDE RECORDS SUMMARY | 2025-04-13 14:02 | XMS_ITS | Encounter Summary ---
Author Organization [facility] Address [address] [place] [address] Care Team Providers Care Almond Pan Finisher Name Role Phone Peter Vines MD Primary Care Provider Unava ilable Encounter Details Date Type Department Care Team (Latest Contact Info) Description 01/12/2005 Outpatient Historical [facility] [place] [address] [place] [phone] Peter Vines MD NO ADDRESS ON FILE Routine child health exam (Primary Dx); ACUTE URI NOS Social History Tobacco Use Types Packs/Day Years Used Date Smoking Tobacco: Never Assessed Sex and Gender Information Value Date Recorded Sex Assigned at Not on file Legal 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
--- OUTSIDE RECORDS SUMMARY | 2025-04-13 14:02 | XMS_ITS | Clinical Summary ---
Author Organization [facility] Address [address] [place] [address] Care Team Providers Care Gear Inspector Name Role Phone Peter Vines MD Primary Care Provider Unava ilable Allergies No known active allergies Medications cloNIDine (CATAPRES) 0.1 mg tabletIndication s:Simple tics Take 1 Tab by mouth 2 times daily. 60 Tab 11 11/26/2013 Active sertraline (ZOLOFT) 50 mg tabletIndication s:Acute pain of right knee 11/23/2016 Active LISDEXAMFETAMINE DIMESYLATE (VYVANSE ORAL)Indications :Acute pain of right knee Take by mouth. Active Active Problems Problem Noted Date Diagnosed Date Simple tics 06/26/2012 Attention deficit disorder with hyperactivity(31 4.01) Immunizations Immunization Administration Dates Next Due (M-M-R II/PRIORIX)(12 MO UP) MEASLES, MUMPS AND RUBELLA VIRUS VACCINE, 0.5 ML IM/SUBCUT 01/14/2006,06/21/2002 (VARIVAX)(12 MOS UP)VARICELL A VIRUS VACCINE (PF) 0.5 ML, SUB CUT 10/06/2007,03/22/2002 Dt Dtp Dtap Vaccine 01/14/2006, 2,2001,07/12,2001 HIB, Unspecified Formulation 06/21/2002, 2001,2001,05/10 HPV Vaccine 3 Dose IM VFC 11/26/2013,08/10/2013, 05/11/2013 Hepatitis A Vaccine 10/06/2007 Hepatitis A Vaccine Ped Adol IM 2 Dose VFC 03/11/2009 Hepatitis B Vaccine 2001,2001,2000 IPV/OPV 01/14/2006, 2,2001,05/10 Influenza Vaccine Nasal Quad VFC 08/10/2013 Influenza Vaccine Nasal VFC 06/26/2012 Influenza Vaccine Split 3+ Yrs PF IM 08/27/2008 Influenza Vaccine Split 3+ Y rs PF IM VFC 09/14/2011,07/29/2010,09/10/2009 Meningococcal A Conjugate Va ccine IM VFC 03/10/2012 Pneumococcal 7-valent conjug ate vaccine IM 06/21/2002,2001,2001,05/10 Tdap Vaccine > 7 Yo IM VFC 05/11/2013 Family History Medical History Relation Name Comments Healthy Brother Healthy Father Healthy Maternal Grandfather Stroke Maternal Grandmother TIAs Healthy Mother Healthy Paternal Grandfather Healthy Paternal Grandmother Relation Name Status Comments Brother Father Maternal Grandfather Maternal Grandmother Mother Paternal Grandfather Paternal Grandmother Social History Tobacco Use Types Packs/Day Years Used Date Smoking Tobacco: Never Assessed Sex and Gender Information Value Date Recorded Sex Assigned at Not on file Legal Sex Male 3:28 AM AUTO RENTAL SUPERVISOR Gender Identity Not on file Sexual Orientation Not on file Last Filed Vital Signs Vital Sign Reading Time Taken Comments Blood Pressure 111/72 12/10/2016 9:56 AM AUTO RENTAL SUPERVISOR Pulse 93 12/10/2016 9:56 AM AUTO RENTAL SUPERVISOR Temperature 36.4 C (97.6 F) 10/11/2012 9:59 AM AUTO RENTAL SUPERVISOR Respiratory Rate - - Oxygen Saturation - - Inhaled Oxygen Concentration - - Weight 110.7 kg (244 lb) 12/10/2016 9:56 AM AUTO RENTAL SUPERVISOR Height 180.3 cm (5' 11 ) 12/10/2016 9:56 AM AUTO RENTAL SUPERVISOR Body Mass Index 34.03 12/10/2016 9:56 AM AUTO RENTAL SUPERVISOR Plan of Treatment Health Maintenance Due Date Last Done Comments DTAP/TDAP/TD VACCINES (7 - T d or Tdap) 05/11/2023 05/11/2013, 01/14/2006, 06/21/2002, Additional history exists INFLUENZA VACCINE (#1) 2025 3, 06/26/2012, 09/14/2011, Additional history exists HEPATITIS B VACCINES Completed 2001, 2001, 2001 HPV VACCINES Completed 11/26/2013, 10/2012, 05/11/2013 Insurance [address] [place] [id number] [place] [address] [address] [place] Care Teams Gear Inspector Relationship Specialty Start Date End Date Peter Vines MD PCP - General 10/17/07
--- OUTSIDE RECORDS SUMMARY | 2025-04-13 14:02 | XMS_ITS | Encounter Summary ---
Author Organization [facility] Address [address] [place] [address] Care Team Providers Care Twx Operator Name Role Phone Peter Vines MD Primary Care Provider Unava ilable Encounter Details Date Type Department Care Team (Latest Contact Info) Description 07/04/2007 Outpatient Historical [facility] [place] [address] [place] [address] Peter Vines MD NO ADDRESS ON FILE Attention Deficit Disorder with Hyperactivity (Primary Dx) Social History Tobacco Use Types Packs/Day Years Used Date Smoking Tobacco: Never Assessed Sex and Gender Information Value Date Recorded Sex Assigned at Not on file Legal Sex Male 3:28 AM IMPLEMENTATION PROJECT COORDINATOR Gender Identity Not on file Sexual Orientation Not on file documented as of this encounter Plan of Treatment Not on file documented as of this encounter Visit Diagnoses Diagnosis Attention deficit disorder with hyperactivity(314.01)- Primary Attention deficit disorder with hyperactivity documented in this encounter Care Teams Twx Operator Relationship Specialty Start Date End Date Peter Vines MD PCP - General 10/17/07 documented as of this encounter
--- OUTSIDE RECORDS SUMMARY | 2025-04-13 14:02 | XMS_ITS | Encounter Summary ---
Author Organization [facility] Address [address] [place] [address] Care Team Providers Care Cigarette Making Machine Hopper Feeder Name Role Phone Peter Vines MD Primary Care Provider Unava ilable Encounter Details Date Type Department Care Team (Late st Contact Info) Description 09/13/2008 Outpatient Historical [facility] Imaging Services-[facility] [place] [address] [place] [address] Peter Vines MD NO ADDRESS ON FILE Social History Tobacco Use Types Packs/Day Years Used Date Smoking Tobacco: Never Assessed Sex and Gender Information Value Date Recorded Sex Assigned at Not on file Legal Sex Male 3:28 AM PROPERTY PRESERVATION SPECIALIST Gender Identity Not on file Sexual Orientation Not on file documented as of this encounter Plan of Treatment Not on file documented as of this encounter Procedures Procedure Name Priority Date/Time Associated Diagnosis Comments US RENAL Routine 09/16/2008 10:11 AM PROPERTY PRESERVATION SPECIALIST documented in this encounter Results * US RENAL (09/16/2008 10:11 AM PROPERTY PRESERVATION SPECIALIST) Anatomical Region Laterality Modality Abdomen Other 09/16/2008 10:1 1 AM PROPERTY PRESERVATION SPECIALIST Narrative 04/11/2013 9:15 AM CDT Final Exam, Report in Cerner. Bilateral Renal Ultrasound Sep 16, 2008 10:11:42 AM . Comparisons: None. Clinical History: Gynecomastia. Findings: Right kidney measures 9.4 cm in length while the left kidney measures 9.8 cm in length. There is no evidence for hydronephrosis, solid renal mass, renal calculi or perinephric fluid collections. The adrenal glands are not definitely identified. Impressions: 1. Unremarkable bilateral renal ultrasound. - Dictated By: Gilmer Casillas M.D., Ph.D. LENNOX Procedure Note [facility] Ash[facility], Radiologist, - 04/11/2013 Final Exam, Report in Cerner. Bilateral Renal Ultrasound Sep 16, 2008 10:11:42 AM . Comparisons: None. Clinical History: Gynecomastia. Findings: Right kidney measures 9.4 cm in length while the left kidneymeasures 9.8 cm in length. There is no evidence for hydronephrosis, solid renal mass, renal calculi orperinephric fluid collections. The adrenal glands are not definitely identified. Impressions: 1. Unremarkable bilateral renal ultrasound. - Dictated By: Gilmer Casillas M.D., Ph.D. WENDY Peter Vines MD ORDERABLES Final Result documented in this encounter Visit Diagnoses Not on filedocumented in this encounter Care Teams Cigarette Making Machine Hopper Feeder Relationship Specialty Start Date End Date Peter Vines MD PCP - General 10/17/07 documented as of this encounter
--- OUTSIDE RECORDS SUMMARY | 2025-04-13 14:02 | XMS_ITS | Encounter Summary ---
Author Organization [facility] Address [address] [place] [address] Care Team Providers Care Cable Coverer Name Role Phone Peter Vines MD Primary Care Provider Carlos ilrosangela Encounter Details Date Type Department Care Team (Late st Contact Info) Description 11/22/[address] [facility] Pediatrics-[facility] [place] [address] [place] [address] Peter Vines MD NO ADDRESS ON FILE Social History Tobacco Use Types Packs/Day Years Used Date Smoking Tobacco: Never Assessed Sex and Gender Information Value Date Recorded Sex Assigned at Not on file Legal Sex Male 3:28 AM SANDBLASTING SUPERVISOR Gender Identity Not on file Sexual Orientation Not on file documented as of this encounter Progress Notes * Peter Vines MD - 11/22/2007 12:00 AM CST Patient Name: Norman Lozano DOS: 11/22/2007 : 2000 [age]: 6-8/12 years WEIGHT: 57-1/2 lb TEMPERATURE: 99.9 CC: A 6-8/12 year old who comes in with cough of 2 days duration, fever of 1 days duration. A sibling has pneumonia. Mother has pneumonia. A sibling has flu. PHYSICAL EXAMINATION: GENERAL: Alert, active child with normal hydration and no toxicity. NECK: Supple. HEENT: Eyes red. CHEST: Clear lung otto. No respiratory distress or cyanosis. HEART: Negative. ABDOMEN: Soft, with no unusual masses, tenderness, or organomegaly. LABORATORY: Flu A/B panel is positive for influenza A. CBC is normal; white count 6100. Differential is balanced. X-RAY: Because of other family members having pneumonia, a chest x-ray is done, PA and left lateral, and is negative. IMPRESSION: Flu syndrome with cough. PLAN: Tamiflu 60 mg b.i.d. x5 days. Follow up as needed. Peter Vines M.D. [facility] Electronically Signed by Peter Vines M.D. 11/23/2007 10:05 , A, acr Job #: Document #: [id number] cc: BLASTING SUPERVISOR documented in this encounter Plan of Treatment Not on file documented as of this encounter Visit Diagnoses Not on filedocumented in this encounter Care Teams Cable Coverer Relationship Specialty Start Date End Date Peter Vines MD PCP - General 10/17/07 documented as of this encounter
--- OUTSIDE RECORDS SUMMARY | 2025-04-13 14:02 | XMS_ITS | Encounter Summary ---
Author Organization [facility] Address [address] [place] [address] Care Team Providers Care Nursing Department Chairperson Name Role Phone Peter Vines MD Primary Care Provider Unava ilable Encounter Details Date Type Department Care Team (Late st Contact Info) Description 11/22/2007 Outpatient Historical [facility] Imaging Services-[facility] [place] [address] [place] [address] Social History Tobacco Use Types Packs/Day Years Used Date Smoking Tobacco: Never Assessed Sex and Gender Information Value Date Recorded Sex Assigned at Not on file Legal Sex Male 3:28 AM CASH REGISTER SERVICER Gender Identity Not on file Sexual Orientation Not on file documented as of this encounter Procedure Notes * Peter Vines MD - 11/22/2007 12:00 AM CSTAssociated Order(s): IMAGING REPORT Date: 11/22/2007 Patient Name: Norman Lozano : 2000 Requesting Physician: Peter Vines M.D. Because of other family members having pneumonia, a chest x-ray is done, PA and left lateral, and is negative. Peter Vines M.D. Pediatrics - [facility] Electronically Signed by Peter Vines M.D. 11/23/2007 10:05 , A acr Job #: Document #: [id number] cc: Radiology SGC (Not official until signed) REGISTER SERVICER documented in this encounter Plan of Treatment Not on file documented as of this encounter Procedures Procedure Name Priority Date/Time Associated Diagnosis Comments IMAGING REPORT 11/23/2007 10:06 AM CASH REGISTER SERVICER documented in this encounter Results * IMAGING REPORT (11/23/2007 10:06 AM CASH REGISTER SERVICER) Narrative Transcriptions Peter Vines MD - 11/22/2007 12:00 AM CST Date: 11/22/2007 Patient Name: Norman Lozano : 2000 Requesting Physician: Peter Vines M.D. Because of other family members having pneumonia, a chest x-ray is done,PA and left lateral, and is negative. Peter Vines M.D. Pediatrics - [facility] Electronically Signed by Peter Vines M.D. 11/23/2007 10:05 , A acr Job #: Document #: [id number] cc: Radiology SGC (Not official until signed) Peter Vines MD DIAGNOSTIC IMAGING ORDERABLE S Final Result documented in this encounter Visit Diagnoses Not on filedocumented in this encounter Care Teams Nursing Department Chairperson Relationship Specialty Start Date End Date Peter Vines MD PCP - General 10/17/07 documented as of this encounter
--- OUTSIDE RECORDS SUMMARY | 2025-04-13 14:02 | XMS_ITS | Encounter Summary ---
Author Organization [facility] Address [address] [place] [address] Care Team Providers Care Meeting/Event Planner Name Role Phone Peter Vines MD Primary Care Provider Unava ilable Encounter Details Date Type Department Care Team (Latest Contact Info) Description 06/17/[address] [facility] [address] [place] [address] Peter Vines MD NO ADDRESS ON FILE Bronchopneumonia, Organism Unspecified (Primary Dx) Social History Tobacco Use Types Packs/Day Years Used Date Smoking Tobacco: Never Assessed Sex and Gender Information Value Date Recorded Sex Assigned at Not on file Legal Sex Male 3:28 AM LABOR RELATIONS ANALYST Gender Identity Not on file Sexual Orientation Not on file documented as of this encounter Plan of Treatment Not on file documented as of this encounter Visit Diagnoses Diagnosis Bronchopneumonia, organism unspecified- Primary documented in this encounter Care Teams Meeting/Event Planner Relationship Specialty Start Date End Date Peter Vines MD PCP - General 10/17/07 documented as of this encounter
--- OUTSIDE RECORDS SUMMARY | 2025-04-13 14:02 | XMS_ITS | Encounter Summary ---
Author Organization [facility] Address [address] [place] [address] Care Team Providers Care Counter Intelligence Agent Name Role Phone Peter Vines MD Primary Care Provider Unava ilable Encounter Details Date Type Department Care Team (Latest Contact Info) Description 11/04/2005 Outpatient Historical [facility] Imaging Services-[facility] [place] [address] [place] [address] Peter Vines MD NO ADDRESS ON FILE FEVER (Primary Dx) Social History Tobacco Use Types Packs/Day Years Used Date Smoking Tobacco: Never Assessed Sex and Gender Information Value Date Recorded Sex Assigned at Not on file Legal Sex Male 3:28 AM FIRE SPRINKLER SERVICE TECHNICIAN Gender Identity Not on file Sexual Orientation Not on file documented as of this encounter Plan of Treatment Not on file documented as of this encounter Visit Diagnoses Diagnosis Fever and other physiologic disturbances of temperature regulation- Primary documented in this encounter Care Teams Counter Intelligence Agent Relationship Specialty Start Date End Date Peter Vines MD PCP - General 10/17/07 documented as of this encounter
--- OUTSIDE RECORDS SUMMARY | 2025-04-13 14:02 | XMS_ITS | Clinical Summary ---
Author Organization [facility] Address [address] Attn: Epic Prelude ADT [place] [address] Care Team Providers Care Milking Machine Technician Name Role Phone Peter Vines MD Primary Care Provider Unava ilable Allergies No known active allergies Medications lisdexamfetamine dimesylate (VYVANSE ORAL)Indications :Acute pain of right knee Take by mouth. 12/10/2016 Active sertraline (ZOLOFT) 50 mg tabletIndication s:Acute pain of right knee 11/23/2016 Active Active Problems Problem Noted Date Diagnosed [...] at Not on file Legal Sex Male 7:11 AM QC SCIENTIST Gender Identity Not on file Sexual Orientation Not on file Last Filed Vital Signs Vital Sign Reading Time Taken Comments Blood Pressure 140/92 04/27/2022 11:45 AM CDT Pulse 93 12/10/2016 9:56 AM QC SCIENTIST Temperature 36.8 C (98.3 F) 04/27/2022 11:45 AM CDT Respiratory Rate 16 04/27/2022 11:45 AM CDT Oxygen Saturation 100% 04/27/2022 11:45 AM CDT Inhaled Oxygen Concentration - - Weight 137.9 kg (304 lb) 04/27/2022 11:45 AM CDT Height 188 cm (6' 2 ) 04/27/2022 11:45 AM CDT Body Mass Index 39.03 04/27/2022 11:45 AM CDT Plan of Treatment Health Maintenance Due Date Last Done Comments DTAP/TDAP/TD VACCINES (7 - T d or Tdap) 05/11/2023 05/11/2013, 01/14/2006, 06/21/2002, Additional history exists INFLUENZA VACCINE (#1) 2025 3, 06/26/2012, 09/14/2011, Additional history exists HEPATITIS B VACCINES Completed 2001, 2001, 2001 HPV VACCINES Completed 11/26/2013, 10/2012, 05/11/2013 Insurance [facility] [id number] [place] Care Teams Milking Machine Technician Relationship Specialty Start Date End Date Peter Vines MD PCP - General 10/17/07
--- OUTSIDE RECORDS SUMMARY | 2025-04-13 14:02 | XMS_ITS | Encounter Summary ---
Author Organization [facility] Address [address] [place] [address] Care Team Providers Care Biochemistry Technologist Name Role Phone Peter Vines MD Primary Care Provider Unava ilable Encounter Details Date Type Department Care Team (Latest Contact Info) Description 11/18/2005 Outpatient Historical [facility] [place] [address] [place] [address] Peter Vines MD NO ADDRESS ON FILE BRONCOPNEUMONIA ORG NOS (Primary Dx) Social History Tobacco Use Types Packs/Day Years Used Date Smoking Tobacco: Never Assessed Sex and Gender Information Value Date Recorded Sex Assigned at Not on file Legal Sex Male 3:28 AM MEDICAL FIELD REPRESENTATIVE Gender Identity Not on file Sexual Orientation Not on file documented as of this encounter Plan of Treatment Not on file documented as of this encounter Visit Diagnoses Diagnosis Bronchopneumonia, organism unspecified- Primary documented in this encounter Care Teams Biochemistry Technologist Relationship Specialty Start Date End Date Peter Vines MD PCP - General 10/17/07 documented as of this encounter
--- OUTSIDE RECORDS SUMMARY | 2025-04-13 14:02 | XMS_ITS | Encounter Summary ---
Author Organization [facility] Address [address] [place] [address] Care Team Providers Care Immigration Lawyer Name Role Phone Peter Vines MD Primary Care Provider Unava ilable Encounter Details Date Type Department Care Team (Latest Contact Info) Description 03/02/2007 Outpatient Historical [facility] [place] [address] [place] [id number] Peter Vines MD NO ADDRESS ON FILE Attention Deficit Disorder with Hyperactivity (Primary Dx) Social History Tobacco Use Types Packs/Day Years Used Date Smoking Tobacco: Never Assessed Sex and Gender Information Value Date Recorded Sex Assigned at Not on file Legal Sex Male 3:28 AM LAUNCH STEWARD Gender Identity Not on file Sexual Orientation Not on file documented as of this encounter Plan of Treatment Not on file documented as of this encounter Visit Diagnoses Diagnosis Attention deficit disorder with hyperactivity(314.01)- Primary Attention deficit disorder with hyperactivity documented in this encounter Care Teams Immigration Lawyer Relationship Specialty Start Date End Date Peter Vines MD PCP - General 10/17/07 documented as of this encounter
--- OUTSIDE RECORDS SUMMARY | 2025-04-13 14:02 | XMS_ITS | Encounter Summary ---
Author Organization [facility] Address [address] [place] [address] Care Team Providers Care Crossing Gateman Name Role Phone Peter Vines MD Primary Care Provider Unava ilable Encounter Details Date Type Department Care Team (Latest Contact Info) Description 08/13/2005 Outpatient Historical [facility] Ashley Rhoades MD NO ADDRESS ON FILE ACUTE URI NOS (Primary Dx) Social History Tobacco Use Types Packs/Day Years Used Date Smoking Tobacco: Never Assessed Sex and Gender Information Value Date Recorded Sex Assigned at Not on file Legal Sex Male 3:28 AM GARDE MANGER Gender Identity Not on file Sexual Orientation Not on file documented as of this encounter Plan of Treatment Not on file documented as of this encounter Visit Diagnoses Diagnosis Acute upper respiratory infections of unspecified site- Primary documented in this encounter Care Teams Crossing Gateman Relationship Specialty Start Date End Date Peter Vines MD PCP - General 10/17/07 documented as of this encounter
--- OUTSIDE RECORDS SUMMARY | 2025-04-13 14:02 | XMS_ITS | Encounter Summary ---
Author Organization [facility] Address [address] [place] [address] Care Team Providers Care Patternmaker Hand Name Role Phone Peter Vines MD Primary Care Provider Unava ilable Encounter Details Date Type Department Care Team (Latest Contact Info) Description 11/04/2005 Outpatient Historical [facility] [place] [address] [place] [phone] Peter Vines MD NO ADDRESS ON FILE BRONCOPNEUMONIA ORG NOS (Primary Dx); CHEST PAIN NOS Social History Tobacco Use Types Packs/Day Years Used Date Smoking Tobacco: Never Assessed Sex and Gender Information Value Date Recorded Sex Assigned at Not on file Legal Sex Male 3:28 AM WAITER/WAITRESS COUNTER Gender Identity Not on file Sexual Orientation Not on file documented as of this encounter Plan of Treatment Not on file documented as of this encounter Visit Diagnoses Diagnosis Bronchopneumonia, organism unspecified- Primary Chest pain, unspecified documented in this encounter Care Teams Patternmaker Hand Relationship Specialty Start Date End Date Peter Vines MD PCP - General 10/17/07 documented as of this encounter
--- NOTE | 2025-04-13 14:07 | XRR_ITS ---
PROCEDURE INFORMATION: Exam: XR Chest Exam date and time: 04/13/2025 3:16 PM Age: 25 years old Clinical indication: Dyspnea; Cough; Chest pain; Additional info: Dyspnea/cough TECHNIQUE: Imaging protocol: Radiologic exam of the chest. Views: 1 view. COMPARISON: CR XR chest 1V portable [id number] 07/31/2024 8:15 AM FINDINGS: Lungs: Unremarkable. No consolidation. Pleural spaces: Unremarkable. No pleural effusion. No pneumothorax. Heart/Mediastinum: Unremarkable. No cardiomegaly. Bones/joints: Unremarkable. XR/XR chest 1V portable [id number] IMPRESSION: No acute findings.
[2025-04-13 14:11] VITALS: BP 118/81; PULSE 77; RESP 18; TEMP 36.7; O2SAT 96; BMI 41.8
[2025-04-13 14:51] LABS: Hematocrit 46.7 % (37-53); Hemoglobin 15.30 g/dL (11.27-16.99); Mean Corpuscular HGB Conc 32.8 g/dL (30-55); Mean Corpuscular Hemoglobin 27.1 pg (27-33); Mean Corpuscular Volume 82.7 fl (82-101); Nucleated Red Blood Cells % 0 %; Platelet Count 217 10^3/cmm (157-399); Red Blood Count 5.65 10^6/uL (3.85-5.65); White Blood Count 7.16 10^3/uL (3.29-11.43)
[2025-04-13 15:09] LABS: Alanine Aminotransferase 46 U/L (0-41); Albumin Level 4.4 g/dL (3.5-5.2); Alkaline Phosphatase 144 U/L (40-130); Anion Gap 18.6 (5-19); Aspartate Amino Transferase 30 U/L (0-40); Blood Urea Nitrogen 18 mg/dL (6-20); Calcium 9.9 mg/dL (8.5-10.5); Carbon Dioxide 20 mmol/L (22-29); Chloride 97 mmol/L (98-107); Creatinine Clr Calc Pharmacy 224.5108; Globulin 3.6 g/dL (1.3-4.6); Glucose 91 mg/dL (65-115); Osmolality Calculated 275 mOsm/kg (285-295); Potassium 3.6 mmol/L (3.5-5.1); Sodium 132 mmol/L (136-145); Total Protein 8.0 g/dL (6.6-8.7)
[2025-04-13 15:31] VITALS: BP 118/67; PULSE 76; RESP 18; O2SAT 97
--- NOTE | 2025-04-13 15:44 | ECG_ITS ---
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
--- NOTE | 2025-04-13 15:50 | W.ED.CHESTPA ---
HPI - Chest Pain General: Chief Complaint: Chest Pain Stated Complaint: chest pain Time Seen by Provider: 04/13/25 15:16 History of Present Illness: Chief complaint is chest tightness and tightness to breathe. The patient states he woke up 9:00 this morning and felt tightness in his chest and some tightness to breathe. No radiation. It was substernal. He states that after a while the eased up and resolved and it came back again a few hours later. Is not exertional. No pleurisy. No recent immobility or leg pain or swelling. No hemoptysis cough fever or recent illness. No history of PE or DVT. He used to smoke but quit. No abdominal pain vomiting or diarrhea. Related Data Home Medications ?Medication ?Instructions ?Recorded ?Confirmed acetaminophen 325 mg tablet 650 mg PO QID PRN Pain 07/31/24 04/13/25 (Tylenol) Allergies Allergy/AdvReac Type Severity Reaction Status Date / Time No Known Allergies Allergy Verified 12/27/24 07:16 [facility] ED [facility]: Medical History Nicotine use disorder Moderate major depression Obesity (BMI 30-39.9) Puncture wound of foot excluding toes with infection Social History Smoking and tobacco/nicotine status: current every day tobacco/nicotine user e-cigarettes E-Cigarette Details: vaporizer device and with nicotine E-cig/vape details: Refill/3 weeks. Quit status (tobacco/nicotine): has quit using Year quit tobacco: 2021 Second hand smoke exposure: No Alcohol intake: current Alcohol intake frequency: holidays/special occasions only Alcohol type: wine Substance/Drug Use: never Physical Exam Narrative: EXAM NARRATIVE: Resting in the bed comfortably in no acute distress. Pulse ox 100% on room air. Alert oriented no acute distress. Pupils equal reactive light. Full range ocular motion. Neck is supple. Heart regular rate and rhythm no rubs or murmurs. Lung sounds are clear. Abdomen soft nontender. Extremities warm well-perfused. No calf tenderness. No pitting edema. No rash in exposed areas. Skin warm pink and dry. Clear speech. No ataxia. Shows ability to reason. Appropriate affect. Course Vital Signs: Vital signs: Vital Signs Temperature 98.1 F 07/05/25 14:11 Pulse Rate 66 04/13/25 16:25 Respiratory Rate 16 04/13/25 16:25 Blood Pressure 128/76 04/13/25 16:25 Pulse Oximetry 93 04/13/25 16:25 Oxygen Delivery Me thod Room Air 04/13/25 14:11 MDM - Chest Pain Medical Decision Making Patient presents with complaint of tightness in his chest that he woke up with at 9:00 this morning. Denies any drug use. He used to smoke but has quit. He states he does have high cholesterol. Denies having diabetes or high blood pressure. He states that his father had bypass surgery in his 30s and that his grandfather had bypass surgery in his 20s. He states both sides of his family have extensive history of heart disease. Patient states he did get aspirin nitroglycerin by EMS. He is currently symptom-free. PE, WI, dissection, CHF, extensive differential. Symptoms not suggestive of dissection. Patient very young and acute WI would be very low probability based on exam and history. Will screen troponin and D-dimer with low pretest probability. CBC CMP EKG and chest x-ray were ordered. EKG shows some motion artifact with a sinus rhythm with a rate of 81 bpm to my interpretation. Chest x-ray negative for acute process to my independent review and interpretation. CBC and CMP do not show significant acute process. Patient had symptoms that he woke up with at 9:00 this morning and a single negative troponin at this time would make acute cardiac ischemia very unlikely. Advised patient however limits of ED evaluation broad differential with his family history close outpatient follow-up. Lab Data 04/13/25 14:44 04/13/25 14:44 Laboratory Results WBC 7.16 10^3/uL (3.29-11.43) 04/13/25 14:44 RBC 5.65 10^6/uL (3.85-5.65) 04/13/25 14:44 Hgb 15.30 g/dL (11.27-16.99) 04/13/25 14:44 Hct 46.7 % (37-53) 04/13/25 14:44 MCV 82.7 fl (82-101) 04/13/25 14:44 MCH 27.1 pg (27-33) 04/13/25 14:44 MCHC 32.8 g/dL (30-55) 04/13/25 14:44 RDW 14.1 % (12.1-15.1) 04/13/25 14:44 Plt Count 217 10^3/cmm (157-399) 04/13/25 14:44 MPV 11.9 fL (7.4-10.4) H 04/13/25 14:44 Neut % (Auto) 62.9 % 04/13/25 14:44 Lymph % (Auto) 27.9 % 04/13/25 14:44 Barron % (Auto) 7.4 % 04/13/25 14:44 Eos % (Auto) 1.3 % 04/13/25 14:44 Baso % (Auto) 0.4 % 04/13/25 14:44 Neut # (Auto) 4.50 10^3/uL (1.8-7.7) 04/13/25 14:44 Lymph # (Auto) 2.0 10^3/uL (0.8-4.8) 04/13/25 14:44 Barron # (Auto) 0.5 10^3/uL (0.2-0.9) 04/13/25 14:44 Eos # (Auto) 0.1 10^3/uL (0.0-0.8) 04/13/25 14:44 Baso # (Auto) 0.0 10^3/uL (0.0-0.1) 04/13/25 14:44 Nucleated RBC % (auto) 0 % 04/13/25 14:44 Nucleated RBCs # 0.0 /100WBC 04/13/25 14:44 D-Dimer <= 0.27 ug/mLFEU (0-0.59) 04/13/25 14:44 Sodium 132 mmol/L (136-145) L 04/13/25 14:44 Potassium 3.6 mmol/L (3.5-5.1) 04/13/25 14:44 Chloride 97 mmol/L (98-107) L 04/13/25 14:44 Carbon Dioxide 20 mmol/L (22-29) L 04/13/25 14:44 Anion Gap 18.6 (5-19) 04/13/25 14:44 BUN 18 mg/dL (6-20) 04/13/25 14:44 Creatinine 0.8 mg/dL (0.7-1.2) 04/13/25 14:44 GFR Calculation 118.8 mL/min (90-130) 04/13/25 14:44 Glucose 91 mg/dL (65-115) 04/13/25 14:44 Calculated Osmolality 275 mOsm/kg (285-295) L 04/13/25 14:44 Calcium 9.9 mg/dL (8.5-10.5) 04/13/25 14:44 Total Bilirubin 0.4 mg/dL (0.15-1.2) 04/13/25 14:44 AST 30 U/L (0-40) 04/13/25 14:44 ALT 46 U/L (0-41) H 04/13/25 14:44 Alkaline Phosphatase 144 U/L (40-130) H 04/13/25 14:44 Troponin T Baseline 7 ng/L (0-15) 04/13/25 14:44 NT-Pro-B Natriuret Pep < 36 pg/mL (0-125) 04/13/25 14:44 Total Protein 8.0 g/dL (6.6-8.7) 04/13/25 14:44 Albumin 4.4 g/dL (3.5-5.2) 04/13/25 14:44 Globulin 3.6 g/dL (1.3-4.6) 04/13/25 14:44 Lipase 15 U/L (13-60) 04/13/25 14:44 XR interpretation done by ED provider, pending radiology final review Discharge Plan Discharge Patient Disposition: Home Clinical Impression: Chest pain Condition: Stable Prescriptions: No Action acetaminophen [Tylenol] 325 mg Tablet 650 mg PO QID PRN (Reason: Pain) Discharge Orders: Discharge ED (Routine); Ordered 04/13/25 Ordered By: Alvaro Chaparro Referrals: Olivier Short MD [Primary Care Provider, Family Practice] Patient Instructions: Patient Portal & Lizz Instructions Activity Restrictions/Additional Instructions: Follow-up on your test results with your doctor next week including final xray results. Come back if increased shortness of breath, chest pain, fever, abdominal pain, any worse or concerns. Do not exert yourself. Print Language: Faroese Coding Level of Care Code ED Spd Tech for Marco Antonio Mendiola
[2025-04-13 16:23] LABS: Troponin(5th) Baseline 7 ng/L (0-15)
[2025-04-13 16:25] VITALS: BP 128/76; PULSE 66; RESP 16; O2SAT 93
[2025-04-13 16:30] LABS: Lipase 15 U/L (13-60); NT Pro B Type Natriuretic Pept < 36 pg/mL (0-125)
[2025-04-13 16:57] VITALS: BP 122/76; PULSE 70; RESP 16; O2SAT 97
== END 2025-04-13 17:01 | disposition home or self-care (01) ==
PROVIDERS: Family Medicine; Emergency Provider Emergency Medicine; PCP Family Medicine
DX: R07.9 Chest pain, unspecified (principal); F17.290 Nicotine dependence, other tobacco product, uncomplicated
CPT/HCPCS: 36415; 71045; 80053; 83690; 83880; 84484; 85025; 85378; 93005; 93010; 99285

== ENCOUNTER → 2025-06-04 09:56 | Outpatient (BNVA) | payer OTHER, SELFPAY | PROVIDERS: PCP Family Medicine; Visit Provider Family Medicine | DX: Z51.81 Encounter for therapeutic drug level monitoring (principal); Z00.00 Encounter for general adult medical examination without abnormal findings; Z13.6 Encounter for screening for cardiovascular disorders; Z13.1 Encounter for screening for diabetes mellitus; R53.81 Other malaise; R53.83 Other fatigue; E53.8 Deficiency of other specified B group vitamins; E55.9 Vitamin D deficiency, unspecified | CPT/HCPCS: 80053; 80061; 82306; 82607; 83036; 84439; 84443; 85025 ==

== ENCOUNTER → 2025-06-28 18:57 | Outpatient (BNVA) | payer OTHER, SELFPAY | PROVIDERS: PCP Family Medicine | DX: J02.9 Acute pharyngitis, unspecified (principal) | CPT/HCPCS: 87880 ==